=== PATIENT | female | born 1990 | race Caucasian/White ===

== ENCOUNTER → 2020-04-04 | Outpatient (CLI) | payer OTHER ==
[2020-04-04 14:03] VITALS: BP 174/101; PULSE 115; RESP 18; TEMP 98; BMI 66.4
--- NOTE | 2020-04-04 14:49 | P.HPBAR ---
Bariatric H&P - History & Physicial H&P Date: 04/04/20 History & Physicial: Visit/CC: initial visit Patient initial contact: Initial weight: Initial weight in pounds: Height: 5 ft 3 in Initial BMI: Last weight: Current weight: 170.097 kg Current weight in pounds: 375.00 Current BMI: 66.4 [place] body weight (based on NIH guidelines): 52.163 kg Excess body weight loss: The patient is a 30 year-old F who presents for Bariatric Assessment. DATE OF SERVICE: 04/04/2020 REASON FOR CONSULTATION: Initial bariatric evaluation HISTORY OF PRESENT ILLNESS: Yokasta Stephenson is a 30-year-old female who comes with lifelong morbid obesity. Her mother had the gastric bypass and father had the sleeve. Her highest weight is at present. She has tried weight watchers, thrive, atkins, liquid diet for weight loss. She has tried Adipex. With thrive, she lost 45 pounds and re-gained all of her weight. She denies back pain, but has hip pain from both hips. She has troubles with her knees for osteoarthritis. She denies troubles with her ankles or feet. She reports swelling of the lower e xtremities. She snores when she sleeps. She has daytime fatigue. Her aunt had a blood clot but not blood clots to the lungs. She had troubles with her gallbladder following her and still has her gallbladder. Her father had gallbladder problems as well. She has Crohn's disease. She denies family history of stomach or esophageal cancer. She denies dysphagia. She has acid reflux but does not take medications. She has easy bruising and bleeding. She has diarrhea. She is looking into the sleeve gastrectomy. She denies smoking. She presents to me for the first time in consultation for management of her obesity. She requires 6 months of medical supervised weight loss. At height of 5 feet 3 inches, her ideal body weight is 140 pounds. She comes in 374 pounds. Her body mass index is 66.4. She is 234 pounds overweight. PAST MEDICAL HISTORY: 1. Morbid obesity due to excess calories 2. Body mass index of 66.4, initial 3. Osteoarthritis of the knees. 4. Osteoarthritis of the hips 5. Osteoarthritis of the lower back. 6. Gastroesophageal reflux disease 7. Crohns disease PAST SURGICAL HISTORY: 1. section x 3 HOME MEDICATIONS: Home Medications Medication Instructions Recorded Confirmed No Known Home Medications 03/15/20 04/04/20 ALLERGIES: Allergies Allergy/AdvReac Type Severity Reaction Status Date / Time aspirin Allergy Rash/Hives Verified 04/04/20 13:53 ibuprofen [From Motrin] Allergy Rash/Hives Verified 04/04/20 13:53 Penicillins Allergy Rash/Hives Verified 04/04/20 13:53 SOCIAL HISTORY: Denies past tobacco use. FAMILY HISTORY: No family history of ulcerative colitis disease or Crohn's d isease. Family history of morbid obesity. No lupus in the family. No reports of stomach or esophageal cancer. Aunt had blood clot. Family history of gallbladder disease. REVIEW OF ORGAN SYSTEMS: CONSTITUTIONAL: At height of 5 feet 3 inches, her ideal body weight is 140 pounds. She comes in 374 pounds. Her body mass index is 66.4. She is 234 pounds overweight. HEENT: Denies any active troubles with vision or hearing. ENDOCRINE: Denies diabetes. No hypothyroidism. CARDIOVASCULAR: Denies past reports of palpitations or heart attacks or chest pain. RESPIRATORY: Has daytime somnolence. Denies asthma. GASTROINTESTINAL: Denies any bright red blood per rectum. Has Crohn's disease MUSCULOSKELETAL: Has lower back pain and joint pain. Has osteoarthritis of the knees. History of bilateral lower extremity edema. NEURO: No headaches. No seizure disorders. PSYCH: Denies depression. No suicidal ideation. RHEUMATOLOGIC: No lupus. No rheumatoid arthritis. HEMATOLOGIC: Has abnormal bleeding or bruising. No personal history of DVTs. SKIN: No rash. No skin cancer. PHYSICAL EXAM: VITAL SIGNS: Height 5 foot 3 inches, weight 374 pounds. BMI 66.4 Vital Signs Temp 98 F 04/04/20 13:51 Pulse 115 H 04/04/20 13:51 Resp 18 04/04/20 13:51 BP 174/101 04/04/20 13:51 Pulse Ox GENERAL: Well-developed in no acute distress. HEENT: No scleral icterus. Extraocular movements grossly intact. Hears conversational speech. No nasal drainage. NECK: Supple without lymphadenopathy. CHEST: Nonlabored respirations with equal bilateral excursions. CARDIOVASCULAR:Tachycardic. Distal 2+ pulses. ABDOMEN: Obese, soft, nontender, nondistended. MUSCULOSKELETAL: No clubbing, cyanosis. NEURO: No focal or lateralizing signs. Cranial nerves 2 through 12 grossly within normal limits. PSYCH: Appropriate affect. Alert and oriented to person, place and time. SKIN: Good skin turgor. Well perfused. ASSESSMENT: 1. Morbid obesity due to excess calories 2. Body mass index of 66.4, initial 3. Osteoarthritis of the knees. 4. Osteoarthritis of the hips 5. Osteoarthritis of the lower back. 6. Gastroesophageal reflux disease 7. Crohns disease PLAN: 1. Surgical options including a band, gastric bypass, sleeve gastrectomy were described in detail. Alternatives such as gastric balloon including duodenal switch were described. She is looking into the gastric bypass. 2. The [place] bariatric surgical collaborative data and outcomes calculator were described with surgical options. 3. Recommend a bariatric metabolic panel to evaluate for micro- including macronutrient deficiencies. 4. For history of daytime somnolence, recommend evaluation and treatment for sleep apnea. 5. Dietary surveillance and counseling was reviewed. Increased protein intake over 65 grams daily advised. 6. Will need cardiac risk assessment. 7. Recommend medical risk assessment. 8. Psych assessment per insurance guidelines. 9. Recommend upper endoscopy. 10. Recommend 12-lead EKG. Thank you for this consultation. Laboratory Last Values WBC 10.6 k/uL (3.8-10.6) 04/04/20 15:00 RBC 5.26 m/uL (3.80-5.40) 04/04/20 15:00 Hgb 15.3 gm/dL (11.4-16.0) 04/04/20 15:00 Hct 44.3 % (34.0-46.0) 04/04/20 15:00 MCV 84.2 fL (80.0-100.0) 04/04/20 15:00 MCH 29.0 pg (25.0-35.0) 04/04/20 15:00 MCHC 34.5 g/dL (31.0-37.0) 04/04/20 15:00 RDW 13.0 % (11.5-15.5) 04/04/20 15:00 Plt Count 277 k/uL (150-450) 04/04/20 15:00 MPV 8.3 04/04/20 15:00 PT 10.6 sec (9.9-11.9) 04/04/20 15:00 INR 0.98 (0.90-1.11) 04/04/20 15:00 APTT 28.7 sec (23.5-31.0) 04/04/20 15:00 Sodium 142 mmol/L (135-145) 04/04/20 15:00 Potassium 4.5 mmol/L (3.5-5.5) 04/04/20 15:00 Chloride 106 mmol/L (96-109) 04/04/20 15:00 Carbon Dioxide 26.7 mmol/L (21.6-31.8) 04/04/20 15:00 Anion Gap 9.30 mmol/L (4.00-12.00) 04/04/20 15:00 BUN 17.0 mg/dL (9.0-27.0) 04/04/20 15:00 Creatinine 1.0 mg/dL (0.6-1.5) 04/04/20 15:00 Est GFR (CKD-EPI)AfAm 87.5 (60.0-200.0) 04/04/20 15:00 Est GFR (CKD-EPI)NonAf 75.5 (60.0-200.0) 04/04/20 15:00 BUN/Creatinine Ratio 17.00 Ratio (12.00-20.00) 04/04/20 15:00 Glucose 119 mg/dL (70-110) H 04/04/20 15:[address] Glu mg/dL 117 04/04/20 15:00 Hemoglobin A1c 5.7 % (4.0-6.0) 04/04/20 15:00 Calcium 9.5 mg/dL (8.7-10.3) 04/04/20 15:00 Magnesium 2.0 mg/dL (1.5-2.4) 04/04/20 15:00 Iron 59 ug/dL (50-170) 04/04/20 15:00 TIBC 352 ug/dL (228-460) 04/04/20 15:00 % Saturation 16.76 (12.00-45.00) 04/04/20 15:00 Ferritin 41.1 ng/mL (10.0-291.0) 04/04/20 15:00 Total Bilirubin 0.4 mg/dL (0.3-1.2) 04/04/20 15:00 AST 60 U/L (13-35) H 04/04/20 15:00 ALT 114 U/L (8-44) H 04/04/20 15:00 Alkaline Phosphatase 84 U/L (41-126) 04/04/20 15:00 Total Protein 7.0 g/dL (6.2-8.2) 04/04/20 15:00 Albumin 4.60 g/dL (3.80-4.90) 04/04/20 15:00 Globulin 2.4 g/dL (1.6-3.3) 04/04/20 15:00 Albumin/Globulin Ratio 1.92 g/dL (1.60-3.17) 04/04/20 15:00 Prealbumin 30.0 mg/dL (18.0-42.0) 04/04/20 15:00 Triglycerides 196.0 mg/dL (0.0-149.0) H 04/04/20 15:00 Cholesterol 171 mg/dL (0-200) 04/04/20 15:00 LDL Cholesterol, Calc 87.8 mg/dL (0.0-131.0) 04/04/20 15:00 VLDL Cholesterol, Calc 39.20 mg/dL (5.00-40.00) 04/04/20 15:00 HDL Cholesterol 44.0 mg/dL (40.0-60.0) 04/04/20 15:00 Cholesterol/HDL Ratio 3.89 04/04/20 15:00 Vitamin A 58 ug/dL (38-106) 04/04/20 15:00 Vitamin B12 471.0 pg/mL (200.0-944.0) 04/04/20 15:00 Vitamin B1 73 ug/L (38-122) 04/04/20 15:00 Vitamin D 25-Hydroxy 10.8 ng/mL (30.0-100.0) L 04/04/20 15:00 Folate 11.7 ng/mL 04/04/20 15:00 TSH 2.300 uIU/mL (0.350-5.500) 04/04/20 15:00 PTH Intact 95.6 pg/mL (14.0-72.0) H 04/04/20 15:00 Copper 1203 ug/L (810-1990) 04/04/20 15:00 Zinc 70 ug/dL (60-130) 04/04/20 15:00 EKG EKG PERFORMED 04/04/20 15:00 Vitamin D is low PTH is high Past Medical History Past Medical History: No Reported History Additional Past Medical History / Comment(s): CROHNS/IBS; History of Any Multi-Drug Resistant Organisms: None Reported Past Surgical History: Section Additional Past Surgical History / Comment(s): c section x 3 Past Anesthesia/Blood Transfusion Reactions: No Reported Reaction Past Psychological History: No Psychological Hx Reported Smoking Status: Never smoker Past Alcohol Use History: None Reported Past Drug Use History: None Reported Surgical - Exam Vital Signs Temp Pulse Resp BP 98 F 115 H 18 174/101 04/04/20 13:51 04/04/20 13:51 04/04/20 13:51 04/04/20 13:51 Results - Labs 04/04/20 15:00 04/04/20 15:00 Bariatric Checklist Checklist: Plan: Checklist: EGD: 1. Hiatal hernia: 2. H. Pylori: HgbA1c: Vitamin D: Smoking: Primary care physician referral: Dr. Juan ([place]) Psychiatry clearance: Cardiology clearance: Sleep study: Diet journal: VTE risk score: VTE risk level: Rehab needs at discharge:
[2020-04-04 15:26] LABS: HCT 44.3 % (34.0-46.0); HGB 15.3 gm/dL (11.4-16.0); MCHC 34.5 g/dL (31.0-37.0); MCV 84.2 fL (80.0-100.0); Mean Platelet Volume 8.3; Platelet Count 277 k/uL (150-450); RBC 5.26 m/uL (3.80-5.40); WBC 10.6 k/uL (3.8-10.6)
[2020-04-04 23:00] LABS: INR 0.98 (0.90-1.11); Partial Thromboplastin Time 28.7 sec (23.5-31.0); Prothrombin Time 10.6 sec (9.9-11.9)
[2020-04-05 00:39] LABS: Hemoglobin A1C 5.7 % (4.0-6.0)
[2020-04-05 02:21] LABS: Ferritin 41.1 ng/mL (10.0-291.0)
[2020-04-05 02:42] LABS: % Iron Saturation 16.76 (12.00-45.00); African American GFR (CKD) 87.5 (60.0-200.0); Albumin 4.6 g/dL (3.80-4.90); Albumin/Globulin Ratio 1.92 (1.60-3.17); Anion Gap 9.3 mmol/L (4.00-12.00); Calcium 9.5 mg/dL (8.7-10.3); Carbon Dioxide 26.7 mmol/L (21.6-31.8); Chol/HDL Ratio 3.89; Folate, Serum 11.7 ng/mL; Globulin 2.4 g/dL (1.6-3.3); LDL Cholesterol,Calculated 87.8 mg/dL (0.0-131.0); Non-African American GFR(CKD) 75.5 (60.0-200.0); Phosphorus 3.2 mg/dL (2.4-5.1); Potassium 4.5 mmol/L (3.5-5.5); Total Bilirubin 0.4 mg/dL (0.3-1.2); VLDL Calculation 39.2 mg/dL (5.00-40.00)
[2020-04-05 11:54] LABS: Zinc, Serum 70 ug/dL (60-130)
[2020-04-06 07:02] LABS: Vitamin A 58 ug/dL (38-106)
[2020-04-06 13:18] LABS: Vit B1(Thiamine) 73 ug/L (38-122)
[2020-04-09 11:21] LABS: Selenium 100 mcg/L (63-160)
== END | disposition home or self-care (01) ==
LOC: EDBD 13:00 → EDAGE 13:00 → BARWHC3 13:24
PROVIDERS: ATTEND Surgery Plastic and Reconstructive Surgery
DX: E66.01 Morbid (severe) obesity due to excess calories (principal); M17.0 Bilateral primary osteoarthritis of knee; M16.0 Bilateral primary osteoarthritis of hip; M47.9 Spondylosis, unspecified; K21.9 Gastro-esophageal reflux disease without esophagitis; K50.90 Crohn's disease, unspecified, without complications; D50.8 Other iron deficiency anemias; E44.0 Moderate protein-calorie malnutrition; E55.9 Vitamin D deficiency, unspecified; K74.1 Hepatic sclerosis; N19 Unspecified kidney failure; Z68.44 Body mass index [BMI] 60.0-69.9, adult; Z88.5 Allergy status to narcotic agent; Z88.0 Allergy status to penicillin; Z88.8 Allergy status to other drugs, medicaments and biological substances
CPT/HCPCS: 84255; 84134; 84425; 80061; 80053; 82607; 82728; 82525; 82746; 83540; 83550; 83735; 84100; 84443; 84590; 84630; 85027; 85610; 85730; 82306; 83970; 83036; 93005; G0463; 99203

== ENCOUNTER 2020-06-18 07:35 | Day surgery (SDC) | payer OTHER ==
[2020-06-15 10:33] VITALS: BMI 61.8
[~2020-06-18 07:35] MED LIST: LIDOCAINE 1% (10MG/ML) FOR IV START INTRADERMA PRN
--- NOTE | 2020-06-18 07:40 | P.GSHP ---
History of Present Illness H&P Date: 06/18/20 CHIEF COMPLAINT: GERD HISTORY OF PRESENT ILLNESS: The patient is a 30-year-old female who presents reports gastroesophageal reflux disease. Upper endoscopy was offered for further evaluation and management. PAST MEDICAL HISTORY: Please see list. PAST SURGICAL HISTORY: Please see list. MEDICATIONS: Please see list. ALLERGIES: Please see list. SOCIAL HISTORY: No illicit drug use FAMILY HISTORY: No reports of Crohn disease or ulcerative colitis. REVIEW OF ORGAN SYSTEMS: CONSTITUTIONAL: No reports of fevers or chills. GI: Denies any blood in stools or constipation. PHYSICAL EXAM: VITAL SIGNS: Stable GENERAL: Well-developed and pleasant in no acute distress. HEENT: No scleral icterus. Extraocular movements grossly intact. Moist buccal mucosa. NECK: Supple without lymphadenopathy. CHEST: Unlabored respirations. Equal bilateral excursions. CARDIOVASCULAR: Regular rate and rhythm. Distal 2+ pulses. ABDOMEN: Soft, nondistended. MUSCULOSKELETAL: No clubbing, cyanosis, or edema. ASSESSMENT: 1. Gastroesophageal reflux disease PLAN: 1. Recommend proceeding with an upper endoscopy Past Medical History Past Medical History: GERD/Reflux, Hypertension Additional Past Medical History / Comment(s): CROHNS/IBS; History of Any Multi-Drug Resistant Organisms: None Reported Past Surgical History: Section Additional Past Surgical History / Comment(s): c section x 3 Past Anesthesia/Blood Transfusion Reactions: Motion Sickness Smoking Status: Never smoker - Past Family History Mother Family Medical History: No Reported History Medications and Allergies Home Medications Medication Instructions Recorded Confirmed Type Ergocalciferol [Vitamin D2 (1250 50,000 unit PO WEEKLY 04/09/20 06/15/20 History Mcg = 41483 Iu)] ALPRAZolam [Xanax] 0.5 mg PO DAILY PRN 06/15/20 06/15/20 History Cetirizine HCl [Zyrtec] 10 mg PO DAILY 06/15/20 06/15/20 History Dicyclomine HCl 10 mg PO TID PRN 06/15/20 06/15/20 History Fluticasone Nasal [place] [Flonase 2 spr EA NOSTRIL DAILY 06/15/20 06/15/20 History Nasal [place]] calcium polycarbophiL [Fibercon] 625 mg PO DAILY 06/15/20 06/15/20 History lisinopriL 20 mg PO QAM 06/15/20 06/15/20 History Allergies Allergy/AdvReac Type Severity Reaction Status Date / Time aspirin Allergy Rash/Hives Verified 06/15/20 10:24 ibuprofen [From Motrin] Allergy Rash/Hives Verified 06/15/20 10:24 Penicillins Allergy Rash/Hives Verified 06/15/20 10:24
[2020-06-18 07:58] VITALS: TEMP 97.7
[2020-06-18] MEDS: LACTATED RINGERS 1,000 ML IV SCH ×2 (08:00→08:16)
[2020-06-18] MEDS ORDERED: PROPOFOL 10 MG/ML 20 ML VIAL IV ONE (08:17)
[2020-06-18] MEDS ORDERED: LIDOCAINE 1% INJ 10MG/ML (20 ML MDV) ONE (08:17)
--- NOTE | 2020-06-18 08:32 | P.PCN ---
Date of Procedure: 06/18/20 Description of Procedure: PREOPERATIVE DIAGNOSIS: Gastroesophageal reflux disease. Morbid obesity. POSTOPERATIVE DIAGNOSIS: Morbid obesity. Gastritis. Gastroesophageal reflux disease. OPERATION: Esophagogastroduodenoscopy with biopsies along antrum. SURGEON: Blanka Silva MD ANESTHESIA: MAC. INDICATIONS: The patient is a 30-year-old female who presents with a history of reflux disease. Benefits and risks of the procedure were described. Informed consent was obtained. DESCRIPTION: The patient was brought into the endoscopy suite and laid in the left lateral decubitus position. An Olympus gastroscope was passed along the posterior oropharynx down to the distal esophagus where the squamocolumnar junction was encountered at 38 cm from the incisors. The stomach was entered and no bile reflux was found. Additional findings are listed below. Biopsies with cold forceps were obtained of the antrum. The first through third portion of the duodenum was examined and unremarkable. Retroflexion of the scope confirmed Hill grade 2 lower esophageal valve. The squamocolumnar junction demonstrated LA grade A erosive esophagitis. The stomach was desufflated. The patient tolerated the procedure well. FINDINGS: Squamocolumnar junction 38 cm from the incisors. Diaphragmatic hiatus at 38 cm. Hill grade 2 lower esophageal valve. LA grade A erosive esophagitis. No active duodenitis. Chronic gastritis RECOMMENDATIONS: Upper endoscopy as needed. Plan - Discharge Summary New Discharge Prescriptions: Continue Ergocalciferol [Vitamin D2 (1250 Mcg = 75063 Iu)] 50,000 unit PO WEEKLY Fluticasone Nasal [place] [Flonase Nasal [place]] 2 spr EA NOSTRIL DAILY ALPRAZolam [Xanax] 0.5 mg PO DAILY PRN PRN Reason: Anxiety Dicyclomine HCl 10 mg PO TID PRN PRN Reason: Pain lisinopriL 20 mg PO QAM Cetirizine HCl [Zyrtec] 10 mg PO DAILY calcium polycarbophiL [Fibercon] 625 mg PO DAILY Discharge Medication List Ergocalciferol [Vitamin D2 (1250 Mcg = 75372 Iu)] 50,000 unit PO WEEKLY 04/09/20 [History] ALPRAZolam [Xanax] 0.5 mg PO DAILY PRN 06/15/20 [History] Cetirizine HCl [Zyrtec] 10 mg PO DAILY 06/15/20 [History] Dicyclomine HCl 10 mg PO TID PRN 06/15/20 [History] Fluticasone Nasal [place] [Flonase Nasal [place]] 2 spr EA NOSTRIL DAILY 06/15/20 [History] calcium polycarbophiL [Fibercon] 625 mg PO DAILY 06/15/20 [History] lisinopriL 20 mg PO QAM 06/15/20 [History] [facility] [place] [facility] [place] [facility] Patient Instructions/Handouts: Gastritis (DC), Diet for Stomach Ulcers and Gastritis (ED) Discharge Disposition: HOME SELF-CARE
[2020-06-18 09:03] VITALS: BP 118/76; PULSE 82; RESP 16
== END 2020-06-18 09:12 | disposition home or self-care (01) ==
LOC: ORWHC2ENDO 07:35
PROVIDERS: ATTEND Surgery Plastic and Reconstructive Surgery
DX: K29.50 Unspecified chronic gastritis without bleeding (principal); K21.9 Gastro-esophageal reflux disease without esophagitis; I10 Essential (primary) hypertension; E66.01 Morbid (severe) obesity due to excess calories; Z79.899 Other long term (current) drug therapy; Z88.6 Allergy status to analgesic agent; Z88.0 Allergy status to penicillin
CPT/HCPCS: 81025; 88305; 43239; J2001; J2704

== ENCOUNTER → 2020-06-27 | Outpatient (CLI) | payer OTHER ==
[2020-06-27 14:38] VITALS: BP 138/88; PULSE 102; RESP 22; TEMP 98.1; BMI 62.3
--- NOTE | 2020-06-27 15:37 | P.PN ---
Subjective Progress Note Date: 06/27/20 DATE OF SERVICE: 06/27/2020 CHIEF COMPLAINT: Morbid obesity HISTORY OF PRESENT ILLNESS: Yokasta Stephenson is a 30-year-old female who comes with lifelong morbid obesity. As a result of her morbid obesity, she has developed hypertensive heart disease, osteoarthritis of the knees, hips, lower back. She is looking into the sleeve gastrectomy but open to options on all gastrectomy procedures. She has completed her upper endoscopy. She had an abnormal EKG and has completed a stress test. She is enrolled in medical supervised weight loss and has completed 4+ months. At height of 5 feet 3 inches, her ideal body weight is 140 pounds. She comes in 374 pounds. Her body mass index is 66.4. She comes in 351 pounds from 374 pounds, 3 months ago. She has lost 23 pounds in 3 months. She is 211 pounds o verweight. PAST MEDICAL HISTORY: 1. Morbid obesity due to excess calories 2. Body mass index of 66.4, initial 3. Osteoarthritis of the knees. 4. Osteoarthritis of the hips 5. Osteoarthritis of the lower back. 6. Gastroesophageal reflux disease 7. Crohns disease 8. Hypertensive heart disease 9. Generalized anxiety disorder PAST SURGICAL HISTORY: 1. section x 3 HOME MEDICATIONS: Home Medications Medication Instructions Recorded Confirmed Ergocalciferol [Vitamin D2 (1250 50,000 unit PO WEEKLY 04/09/20 06/27/20 Mcg = 99197 Iu)] ALPRAZolam [Xanax] 0.5 mg PO DAILY PRN 06/15/20 06/27/20 Cetirizine HCl [Zyrtec] 10 mg PO DAILY 06/15/20 06/27/20 Dicyclomine HCl 10 mg PO TID PRN 06/15/20 06/27/20 Fluticasone Nasal [place] [Flonase 2 spr EA NOSTRIL DAILY 06/15/20 06/27/20 Nasal [place]] calcium polycarbophiL [Fibercon] 625 mg PO DAILY 06/15/20 06/27/20 lisinopriL 20 mg PO QAM 06/15/20 06/27/20 Inulin/Chromium Picolinate [Fiber 2 each PO DAILY 06/27/20 06/27/20 Gummies Chew] Previous Rx's Medication Instructions Recorded Ergocalciferol [Vitamin D2 (1250 1,250 mcg PO WEEKLY #20 cap 06/27/20 Mcg = 22031 Iu)] ALLERGIES: Allergies Allergy/AdvReac Type Severity Reaction Status Date / Time aspirin Allergy Rash/Hives Verified 06/27/20 14:38 ibuprofen [From Motrin] Allergy Rash/Hives Verified 06/27/20 14:38 Penicillins Allergy Rash/Hives Verified 06/27/20 14:38 SOCIAL HISTORY: Denies past tobacco use. FAMILY HISTORY: No family history of ulcerative colitis disease or Crohn's disease. Family history of morbid obesity. No lupus in the family. No reports of stomach or esophageal cancer. Aunt had blood clot. Family history of gallbladder disease. REVIEW OF ORGAN SYSTEMS: CONSTITUTIONAL: At height of 5 feet 3 inches, her ideal body weight is 140 pounds. She comes in 374 pounds. Her body mass index is 66.4. She is 234 pounds overweight. HEENT: Denies any active troubles with vision or hearing. ENDOCRINE: Denies diabetes. No hypothyroidism. CARDIOVASCULAR: Denies past reports of palpitations or heart attacks or chest pain. Has hypertensive heart disease. RESPIRATORY: Has daytime somnolence. Denies asthma. GASTROINTESTINAL: Denies any bright red blood per rectum. Has Crohn's disease MUSCULOSKELETAL: Has lower back pain and joint pain. Has osteoarthritis of the knees. History of bilateral lower extremity edema. NEURO: No headaches. No seizure disorders. PSYCH: Denies depression. No suicidal ideation. RHEUMATOLOGIC: No lupus. No rheumatoid arthritis. HEMATOLOGIC: Has abnormal bleeding or bruising. No personal history of DVTs. SKIN: No rash. No skin cancer. PHYSICAL EXAM: VITAL SIGNS: Height 5 foot 3 inches, weight 351 pounds. BMI 62.4 Vital Signs Temp 98.1 F 06/27/20 14:27 Pulse 102 H 06/27/20 14:27 Resp 22 06/27/20 14:27 BP 138/88 06/27/20 14:27 Pulse Ox GENERAL: Well-developed in no acute distress. HEENT: No scleral icterus. Extraocular movements grossly intact. Hears conversational speech. No nasal drainage. NECK: Supple without lymphadenopathy. CHEST: Nonlabored respirations with equal bilateral excursions. CARDIOVASCULAR:Tachycardic. Distal 2+ pulses. ABDOMEN: Obese, soft, nontender, nondistended. MUSCULOSKELETAL: No clubbing, cyanosis. NEURO: No focal or lateralizing signs. Cranial nerves 2 through 12 grossly within normal limits. PSYCH: Appropriate affect. Alert and oriented to person, place and time. SKIN: Good skin turgor. Well perfused. LABS: AST and ALT is elevated. Triglycerides is elevated. Vitamin D is low. PTH is elevated EKG: Left atrial enlargement. Septal infarct. Abnormal EKG. EGD FINDINGS: Squamocolumnar junction 38 cm from the incisors. Diaphragmatic hiatus at 38 cm. Hill grade 2 lower esophageal valve. LA grade A erosive esophagitis. No active duodenitis. Chronic gastritis ASSESSMENT: 1. Morbid obesity due to excess calories 2. Body mass index of 66.4, initial 3. Osteoarthritis of the knees. 4. Osteoarthritis of the hips 5. Osteoarthritis of the lower back. 6. Gastroesophageal reflux disease 7. Crohns disease 8. Elevated liver enzymes 9. Hypertriglyceridemia 10. Vitamin D deficiency 11. Secondary hyperparathyroidism 12. Hypertensive heart disease 13. Generalized anxiety disorder PLAN: 1. Recommend Vitamin D supplement 50,000 units weekly 2. Recommend re-check labs following correction with supplements. 3. Continue medical supervised weight loss. 4. Recommend ultrasound of the gallbladder for elevated liver enzymes. 5. Follow up August following 6 months medical supervised weight loss. Objective - Vital Signs Vital signs: Vital Signs Temp 98.1 F 06/27/20 14:27 Pulse 102 H 06/27/20 14:27 Resp 22 06/27/20 14:27 BP 138/88 06/27/20 14:27 Pulse Ox Intake & Output 06/26/20 06/27/20 06/27/20 18:59 06:59 18:59 Weight 159.665 kg - Labs CBC & Chem 7: 06/27/20 16:08 06/27/20 16:08
[2020-06-27 17:32] LABS: HCT 44.7 % (34.0-46.0); HGB 15.2 gm/dL (11.4-16.0); MCH 28.8 pg (25.0-35.0); MCV 84.8 fL (80.0-100.0); Mean Platelet Volume 8.3; Platelet Count 266 k/uL (150-450); RBC 5.27 m/uL (3.80-5.40); WBC 10.7 k/uL (3.8-10.6)
[2020-06-27 22:55] LABS: INR 0.98 (0.90-1.11); Partial Thromboplastin Time 28.1 sec (23.5-31.0); Prothrombin Time 10.7 sec (9.9-11.9)
[2020-06-28 18:52] LABS: % Iron Saturation 18.7 (12.00-45.00); Albumin 4.7 g/dL (3.80-4.90); Albumin/Globulin Ratio 1.88 (1.60-3.17); Anion Gap 15.8 mmol/L (4.00-12.00); BUN/Creat Ratio 14.55 Ratio (12.00-20.00); Carbon Dioxide 20.2 mmol/L (21.6-31.8); Chol/HDL Ratio 4.13; Globulin 2.5 g/dL (1.6-3.3); Magnesium 1.9 mg/dL (1.5-2.4); Non-African American GFR(CKD) 67.3 (60.0-200.0); Phosphorus 4.6 mg/dL (2.4-5.1); Potassium 4.6 mmol/L (3.5-5.5); Total Bilirubin 0.4 mg/dL (0.3-1.2); Total Protein 7.2 g/dL (6.2-8.2)
[2020-06-28 19:03] LABS: Ferritin 37.5 ng/mL (10.0-291.0)
[2020-06-28 19:12] LABS: Folate, Serum 11.6 ng/mL
[2020-06-29 13:34] LABS: Zinc, Serum 65 ug/dL (60-130)
[2020-07-01 17:28] LABS: Selenium 108 mcg/L (63-160)
[2020-07-02 08:18] LABS: Vitamin A 53 ug/dL (38-106)
[2020-07-02 10:32] LABS: Vit B1(Thiamine) 71 ug/L (38-122)
== END ==
LOC: BARWHC3 14:10
PROVIDERS: ATTEND Surgery Plastic and Reconstructive Surgery
DX: E66.01 Morbid (severe) obesity due to excess calories (principal); M17.0 Bilateral primary osteoarthritis of knee; M16.0 Bilateral primary osteoarthritis of hip; M47.9 Spondylosis, unspecified; K21.9 Gastro-esophageal reflux disease without esophagitis; R94.5 Abnormal results of liver function studies; K50.90 Crohn's disease, unspecified, without complications; E78.1 Pure hyperglyceridemia; E55.9 Vitamin D deficiency, unspecified; N25.81 Secondary hyperparathyroidism of renal origin; I11.9 Hypertensive heart disease without heart failure; F41.1 Generalized anxiety disorder; Z68.44 Body mass index [BMI] 60.0-69.9, adult; Z88.0 Allergy status to penicillin; Z88.6 Allergy status to analgesic agent; Z79.899 Other long term (current) drug therapy
CPT/HCPCS: 84255; 84134; 84425; 80061; 80053; 82607; 82728; 82525; 82746; 83540; 83550; 83735; 84100; 84443; 84590; 84630; 85027; 85610; 85730; 82306; 83970; 83036; G0463; 99211

== ENCOUNTER → 2020-07-26 | Outpatient (CLI) | payer OTHER ==
--- NOTE | 2020-07-26 08:29 | US ---
EXAMINATION TYPE: US gallbladder DATE OF EXAM: 07/26/2020 COMPARISON: NONE CLINICAL HISTORY: R94.5 Abnormal liver function. EXAM MEASUREMENTS: Liver Length: 17.4 cm Gallbladder Wall: 0.2 cm CBD: 0.5 cm Right Kidney: 12.6 x 6.1 x 4.7 cm Pancreas: Partially Obscured by bowel gas Liver: Increased attenuation, decreased visualization of vessels suggestive of fatty infiltration Gallbladder: Wall echo shadow sign. The gallbladder appears full of gallstones. Evidence for sonographic Machado's sign: No CBD: wnl Right Kidney: No hydronephrosis or masses seen IMPRESSION: 1. The pancreas is limited in visualization due to overlying bowel gas. 2. Diffuse fatty infiltration of the liver. 3. Cholelithiasis. The gallbladder appears full of gallstones with a wall echo shadow sign.
== END | disposition home or self-care (01) ==
LOC: RADUSWWP 07:51
PROVIDERS: ATTEND Surgery Plastic and Reconstructive Surgery
DX: K76.0 Fatty (change of) liver, not elsewhere classified (principal); K80.20 Calculus of gallbladder without cholecystitis without obstruction
CPT/HCPCS: 76705

== ENCOUNTER → 2020-08-15 | Outpatient (CLI) | payer OTHER ==
--- NOTE | 2020-08-16 07:52 | XR ---
EXAMINATION TYPE: XR chest 2V DATE OF EXAM: 08/15/2020 COMPARISON: NONE HISTORY: Cough. TECHNIQUE: Frontal and lateral views of the chest are obtained. FINDINGS: There is no focal air space opacity, pleural effusion, or pneumothorax seen. The cardiac silhouette size is within normal limits. The osseous structures are intact. IMPRESSION: No suspicious acute pulmonary process.
== END | disposition home or self-care (01) ==
LOC: RADXRMAIN 16:23
PROVIDERS: ATTEND Surgery Plastic and Reconstructive Surgery
DX: R05 Cough (principal)
CPT/HCPCS: 71046

== ENCOUNTER → 2020-08-15 | Outpatient (CLI) | payer OTHER ==
[2020-08-15 16:58] VITALS: BP 115/84; PULSE 133; RESP 16; TEMP 98.2; BMI 59.8
--- NOTE | 2020-08-15 18:20 | P.PN ---
Subjective Progress Note Date: 08/15/20 DATE OF SERVICE: 08/15/2020 CHIEF COMPLAINT: Morbid obesity HISTORY OF PRESENT ILLNESS: Yokasta Stephenson is a 30-year-old female who comes with lifelong morbid obesity. As a result of her morbid obesity, she has developed hypertensive heart disease, osteoarthritis of the knees, hips, lower back. She is looking into the sleeve gastrectomy. She is enrolled in medical supervised weight loss. She is in her 6th month. She comes in with new right upper quadrant pain exacerbated by fatty foods and has gotten worse since her diet. At height of 5 feet 3 inches, her ideal body weight is 140 pounds. Her highest 374 pounds and body mass index is 66.4. She comes in 337 pounds form 351 pounds, 2 months ago. She has lost 14 pounds in 2 months. She is 197 pounds overweight. PAST MEDICAL HISTORY: 1. Morbid obesity due to excess calories 2. Body mass index of 66.4, initial 3. Osteoarthritis of the knees. 4. Osteoarthritis of the hips 5. Osteoarthritis of the lower back. 6. Gastroesophageal reflux disease 7. Crohns disease 8. Hypertensive heart disease 9. Generalized anxiety disorder PAST SURGICAL HISTORY: 1. section x 3 2. Upper endoscopy HOME MEDICATIONS: Home Medications Medication Instructions Recorded Confirmed Ergocalciferol [Vitamin D2 (1250 50,000 unit PO WEEKLY 04/09/20 06/27/20 Mcg = 53954 Iu)] ALPRAZolam [Xanax] 0.5 mg PO DAILY PRN 06/15/20 06/27/20 Cetirizine HCl [Zyrtec] 10 mg PO DAILY 06/15/20 06/27/20 Dicyclomine HCl 10 mg PO TID PRN 06/15/20 06/27/20 Fluticasone Nasal [place] [Flonase 2 spr EA NOSTRIL DAILY 06/15/20 06/27/20 Nasal [place]] calcium polycarbophiL [Fibercon] 625 mg PO DAILY 06/15/20 06/27/20 lisinopriL 20 mg PO QAM 06/15/20 06/27/20 Inulin/Chromium Picolinate [Fiber 2 each PO DAILY 06/27/20 06/27/20 Gummies Chew] Previous Rx's Medication Instructions Recorded Ergocalciferol [Vitamin D2 (1250 1,250 mcg PO WEEKLY #20 cap 06/27/20 Mcg = 29191 Iu)] ALLERGIES: Allergies Allergy/AdvReac Type Severity Reaction Status Date / Time aspirin Allergy Rash/Hives Verified 06/27/20 14:38 ibuprofen [From Motrin] Allergy Rash/Hives Verified 06/27/20 14:38 Penicillins Allergy Rash/Hives Verified 06/27/20 14:38 SOCIAL HISTORY: Denies past tobacco use. FAMILY HISTORY: No family history of ulcerative colitis disease or Crohn's disease. Family history of morbid obesity. No lupus in the family. No reports of stomach or esophageal cancer. Aunt had blood clot. Family history of gallbladder disease. REVIEW OF ORGAN SYSTEMS: CONSTITUTIONAL: At height of 5 feet 3 inches, her ideal body weight is 140 pounds. She comes in 374 pounds. Her body mass index is 66.4. She is 234 pounds overweight. HEENT: Denies any active troubles with vision or hearing. ENDOCRINE: Denies diabetes. No hypothyroidism. CARDIOVASCULAR: Denies past reports of palpitations or heart attacks or chest pain. Has hypertensive heart disease. RESPIRATORY: Has daytime somnolence. Denies asthma. GASTROINTESTINAL: Denies any bright red blood per rectum. Has Crohn's disease MUSCULOSKELETAL: Has lower back pain and joint pain. Has osteoarthritis of the knees. History of bilateral lower extremity edema. NEURO: No headaches. No seizure disorders. PSYCH: Denies depression. No suicidal ideation. RHEUMATOLOGIC: No lupus. No rheumatoid arthritis. HEMATOLOGIC: Has abnormal bleeding or bruising. No personal history of DVTs. SKIN: No rash. No skin cancer. PHYSICAL EXAM: VITAL SIGNS: Height 5 foot 3 inches, weight 337 pounds. BMI 59.9 Vital Signs Temp 98.2 F 08/15/20 16:54 Pulse 133 H 08/15/20 16:54 Resp 16 08/15/20 16:54 BP 115/84 08/15/20 16:54 Pulse Ox GENERAL: Well-developed in no acute distress. HEENT: No scleral icterus. Extraocular movements grossly intact. Hears conversational speech. No nasal drainage. NECK: Supple without lymphadenopathy. CHEST: Nonlabored respirations with equal bilateral excursions. CARDIOVASCULAR:Tachycardic. Distal 2+ pulses. ABDOMEN: Obese, soft, nontender, nondistended. MUSCULOSKELETAL: No clubbing, cyanosis. NEURO: No focal or lateralizing signs. Cranial nerves 2 through 12 grossly within normal limits. PSYCH: Appropriate affect. Alert and oriented to person, place and time. SKIN: Good skin turgor. Well perfused. LABS: AST and ALT is elevated. STUDIES: US gallbladder independently reviewed with fatty liver disease and gallstones. This is my independent interpretation. Chest xray independently reviewed without infiltrate. This is my independent interpretation. ASSESSMENT: 1. Morbid obesity due to excess calories 2. Body mass index of 66.4, initial to 59.9 3. Osteoarthritis of the knees. 4. Osteoarthritis of the hips 5. Osteoarthritis of the lower back. 6. Gastroesophageal reflux disease 7. Crohns disease 8. Elevated liver enzymes 9. Hypertriglyceridemia 10. Vitamin D deficiency 11. Secondary hyperparathyroidism 12. Hypertensive heart disease 13. Generalized anxiety disorder 14. Tachycardia 15. Fatty liver disease 16. Gallstones 17. Right upper quadrant abdominal pain 18. Vitamin D deficiency PLAN: 1. She has symptomatic gallstones with right upper quadrant abdominal pain. Recommend cholecystectomy. She is elevated risk with BMI over 50.0 2. Antibiotic prophylaxis 3. DVT prophylaxis 4. Continue medical supervised weight loss with low fat diet. 5. Recommend calcium 1200 mg daily and Vitamin D 58030 units weekly for deficiencies. Objective - Vital Signs Vital signs: Vital Signs Temp 98.2 F 08/15/20 16:54 Pulse 133 H 08/15/20 16:54 Resp 16 08/15/20 16:54 BP 115/84 08/15/20 16:54 Pulse Ox Intake & Output 08/14/20 08/15/20 08/15/20 18:59 06:59 18:59 Weight 153.314 kg
== END ==
LOC: BARWHC3 16:51
PROVIDERS: ATTEND Surgery Plastic and Reconstructive Surgery
DX: E66.01 Morbid (severe) obesity due to excess calories (principal); E55.9 Vitamin D deficiency, unspecified; E78.1 Pure hyperglyceridemia; F41.1 Generalized anxiety disorder; I11.9 Hypertensive heart disease without heart failure; K21.9 Gastro-esophageal reflux disease without esophagitis; K50.90 Crohn's disease, unspecified, without complications; K76.0 Fatty (change of) liver, not elsewhere classified; K80.20 Calculus of gallbladder without cholecystitis without obstruction; M16.0 Bilateral primary osteoarthritis of hip; M17.0 Bilateral primary osteoarthritis of knee; N25.81 Secondary hyperparathyroidism of renal origin; Z68.43 Body mass index [BMI] 50.0-59.9, adult; M47.9 Spondylosis, unspecified; R94.5 Abnormal results of liver function studies; R00.0 Tachycardia, unspecified; Z88.0 Allergy status to penicillin; Z88.6 Allergy status to analgesic agent; Z91.048 Other nonmedicinal substance allergy status; Z88.8 Allergy status to other drugs, medicaments and biological substances
CPT/HCPCS: 99211

== ENCOUNTER → 2020-08-20 | Outpatient (CLI) | payer OTHER ==
[2020-08-20 09:34] VITALS: BMI 61.8
== END ==
LOC: BARWHC3 08:30
PROVIDERS: ATTEND Surgery Plastic and Reconstructive Surgery
DX: E66.01 Morbid (severe) obesity due to excess calories (principal); Z71.3 Dietary counseling and surveillance; Z68.44 Body mass index [BMI] 60.0-69.9, adult; Z88.0 Allergy status to penicillin; Z88.6 Allergy status to analgesic agent
CPT/HCPCS: 97804

== ENCOUNTER → 2020-08-20 | Outpatient (CLI) | payer OTHER ==
[2020-08-20 12:53] LABS: Basophils % (A) 0 %; Eosinophils # (A) 0.1 k/uL (0-0.7); Eosinophils % (A) 2 %; HCT 42.2 % (34.0-46.0); HGB 13.6 gm/dL (11.4-16.0); Lymphocytes # (A) 2.1 k/uL (1.0-4.8); Lymphocytes % (A) 26 %; MCH 27.6 pg (25.0-35.0); MCHC 32.3 g/dL (31.0-37.0); MCV 85.3 fL (80.0-100.0); Mean Platelet Volume 8.6; Monocytes # (A) 0.5 k/uL (0-1.0); Monocytes % (A) 6 %; Neutrophils # (A) 5.1 k/uL (1.3-7.7); Neutrophils % (A) 64 %; Platelet Count 223 k/uL (150-450); RBC 4.95 m/uL (3.80-5.40); RDW 13.5 % (11.5-15.5); WBC 7.9 k/uL (3.8-10.6)
[2020-08-20 13:21] LABS: ALT 32 U/L (4-34); AST 27 U/L (14-36); African American GFR (CKD) >90 (>60 ml/min/1.73 sqM); Alkaline Phosphatase 68 U/L (38-126); Anion Gap 6 mmol/L; Blood Urea Nitrogen 21 mg/dL (7-17); Carbon Dioxide 29 mmol/L (22-30); Chloride 102 mmol/L (98-107); Glucose 99 mg/dL (74-99); Non-African American GFR(CKD) 87 (>60 ml/min/1.73 sqM); Potassium 4.7 mmol/L (3.5-5.1); Sodium 137 mmol/L (137-145); Total Bilirubin 0.5 mg/dL (0.2-1.3); Total Protein 6.9 g/dL (6.3-8.2)
== END | disposition home or self-care (01) ==
LOC: LABPAT 11:24
PROVIDERS: ATTEND Surgery Plastic and Reconstructive Surgery
DX: Z01.812 Encounter for preprocedural laboratory examination (principal)
CPT/HCPCS: 36415; 80053; 85025

== ENCOUNTER 2020-08-27 09:58 | Day surgery (SDC) | payer OTHER ==
[2020-08-21 13:45] VITALS: BMI 63.1
--- NOTE | 2020-08-27 07:18 | P.GSHP ---
History of Present Illness H&P Date: 08/27/20 CHIEF COMPLAINT: Cholecystitis HISTORY OF PRESENT ILLNESS: The patient is a 30-year-old female who presents with history of epigastric including right upper quadrant abdominal pain. She underwent diagnostic studies for her gallbladder. Separately her clinical picture was consistent with cholecystitis. Now she presents for surgical intervention. PAST MEDICAL HISTORY: Please see list PAST SURGICAL HISTORY: Please see list MEDICATIONS: Please see list ALLERGIES: Please see list SOCIAL HISTORY: Please see list FAMILY HISTORY: Please see list REVIEW OF ORGAN SYSTEMS: CONSTITUTIONAL: No reports of fevers or chills. HEENT: Denies any troubles with the vision or hearing. ENDOCRINE: No reports of hypothyroidism. No diabetes. RESPIRATORY: No recent pneumonias. CARDIOVASCULAR: Denies chest pain or palpitations GI: No blood in stools or constipation. MUSCULOSKELETAL: Has occasional joint pain including back pain. NEURO: No seizure disorders or headaches. No recent stroke. PSYCH: No depression or suicidal ideation. GENITOURINARY: No active blood in urine. No urinary hesitancy. HEMATOLOGIC: No personal or family history of DVTs or pulmonary emboli. SKIN: No skin cancer. PHYSICAL EXAM: VITAL SIGNS: Afebrile vital signs stable GENERAL: Well-developed pleasant in no acute distress. HEENT: No scleral icterus. Extraocular movements grossly intact. Moist buccal mucosa. NECK: Supple without lymphadenopathy. CHEST: Unlabored respirations. Equal bilateral excursions. CARDIOVASCULAR: Regular rate regular rhythm rhythm. Distal 2+ pulses. ABDOMEN: Soft, nondistended. Tender along the epigastrium and right upper quadrant. MUSCULOSKELETAL: No clubbing, cyanosis, or edema. NEURO: Cranial nerves II to XII within normal limits. No focal or lateralizing signs. PSYCH: Alert and oriented to person, place and time. SKIN: Well-perfused good skin turgor. ASSESSMENT: 1. Epigastric and right upper quadrant abdominal pain 2. Chronic cholecystitis 3. Symptomatic gallstones. PLAN: 1. Will need a robotic cholecystectomy possible open. Benefits and risks were described. 2. Heparin for DVT prophylaxis 5000 units. 3. Antibiotic prophylaxis. Past Medical History Past Medical History: GERD/Reflux, Hypertension Additional Past Medical History / Comment(s): CROHNS/IBS; History of Any Multi-Drug Resistant Organisms: None Reported Past Surgical History: Section Additional Past Surgical History / Comment(s): c section x 3 Past Anesthesia/Blood Transfusion Reactions: Motion Sickness Smoking Status: Never smoker - Past Family History Mother Family Medical History: No Reported History Medications and Allergies Home Medications Medication Instructions Recorded Confirmed Type Ergocalciferol [Vitamin D2 (1250 50,000 unit PO WEEKLY 04/09/20 08/21/20 History Mcg = 81509 Iu)] ALPRAZolam [Xanax] 0.5 mg PO DAILY PRN 06/15/20 08/21/20 History Cetirizine HCl [Zyrtec] 10 mg PO DAILY 06/15/20 08/21/20 History Dicyclomine HCl 10 mg PO TID PRN 06/15/20 08/21/20 History Fluticasone Nasal [place] [Flonase 2 spr EA NOSTRIL DAILY PRN 06/15/20 08/21/20 History Nasal [place]] lisinopriL 20 mg PO QAM 06/15/20 08/21/20 History Calcium Citrate/Vitamin D3 1 each PO BID #60 tablet 08/15/20 08/21/20 Rx [Calcium Cit 315-Vit D3 6.25 Mcg (250 Iu)] Cannabidiol (Cbd) [Epidiolex] 1 dose PO DAILY PRN 08/21/20 08/21/20 History Multivitamins, Thera [Multivitamin 1 tab PO DAILY 08/21/20 08/21/20 History (formulary)] Omeprazole [PriLOSEC] 20 mg PO AC-BRKFST 08/21/20 08/21/20 History calcium polycarbophiL [Fibercon] 625 mg PO DAILY 08/21/20 08/21/20 History Allergies Allergy/AdvReac Type Severity Reaction Status Date / Time aspirin Allergy Rash/Hives Verified 08/21/20 13:36 ibuprofen [From Motrin] Allergy Rash/Hives Verified 08/21/20 13:36 Penicillins Allergy Rash/Hives Verified 08/21/20 13:36
[~2020-08-27 09:58] MED LIST changes: +ACETAMINOPHEN TAB 500 MG TAB PO PRN; +DEXAMETHASONE SOD PHOSPHATE 4 MG/ML 1 ML VIAL IV ONE; +GABAPENTIN 300 MG CAP PO PRN; +INDOCYANINE GREEN 25 MG VIAL IV PRN; +LACTATED RINGERS 1,000 ML IV SCH; -LIDOCAINE 1% (10MG/ML) FOR IV START INTRADERMA PRN; +ONDANSETRON 4 MG/2 ML VIAL IVP ONE; +SCOPOLAMINE 1.5MG/72HR PATCH TRANSDERM PRN; +ceFAZolin 3 GM in SODIUM CHLORIDE 0.9% 100 ML IVPB PRN
[2020-08-27] MEDS ORDERED: LIDOCAINE 1% INJ 10MG/ML (20 ML MDV) ONE (11:26)
[2020-08-27] MEDS ORDERED: PHENYLEPHRINE-0.9% NACL SYG 1,000 MCG/10 ML SYRINGE ONE (11:26)
[2020-08-27] MEDS ORDERED: MIDAZOLAM 2 MG/2 ML VIAL ONE (11:26)
[2020-08-27] MEDS ORDERED: NEOSTIGMINE 1 MG/ML 10 ML VIAL ONE (11:26)
[2020-08-27] MEDS ORDERED: GLYCOPYRROLATE 0.2 MG/ML 2 ML VIAL ONE (11:26)
[2020-08-27] MEDS ORDERED: SUCCINYLCHOLINE CHLORIDE VIAL 200 MG/10 ML VIAL IV ONE (11:26)
[2020-08-27] MEDS ORDERED: PROPOFOL 10 MG/ML 20 ML VIAL IV ONE (11:26)
[2020-08-27] MEDS ORDERED: INDOCYANINE GREEN 25 MG VIAL IV ONE (11:26)
[2020-08-27] MEDS ORDERED: fentaNYL (PF) 50 MCG/ML 2 ML AMP ONE (11:26)
[2020-08-27] MEDS ORDERED: HYDROmorphone (PF) 1 MG/ML ONE (11:26)
[2020-08-27] MEDS ORDERED: ROCURONIUM 10 MG/ML (5 ML VIAL) IV ONE (11:26)
[2020-08-27] MEDS ORDERED: HEPARIN SODIUM,PORCINE 5,000 UNIT/ML 1 ML VIAL SQ ONE (11:28)
[2020-08-27] MEDS ORDERED: HEPARIN SODIUM,PORCINE/PF 5,000 UNIT/0.5 ML SYRINGE SQ ONE (11:29)
[2020-08-27] MEDS ORDERED: LIDOCAINE 1%-EPI 1:100,000 20 ML VIAL SQ ONE (12:03)
[2020-08-27] MEDS ORDERED: LACTATED RINGERS 1,000 ML IV ONE (12:51)
[2020-08-27 13:29] VITALS: TEMP 96.8
[2020-08-27] MEDS: HYDROmorphone 0.5 MG/0.5 ML SYRINGE IVP PRN ×2 (13:48→13:59)
[2020-08-27] MEDS ORDERED: ONDANSETRON 4 MG/2 ML VIAL IVP ONE (13:50)
[2020-08-27] MEDS ORDERED: SIMETHICONE 80 MG CHEWABLE PO SCH (14:07)
--- NOTE | 2020-08-27 14:09 | P.OP ---
Date of Procedure: 08/27/20 Description of Procedure: SURGEON: DERREK GOMEZ MD PREOPERATIVE DIAGNOSES: 1. Symptomatic gallstone 2. Right upper quadrant abdominal pain 3. Morbid obesity due to excess calories, BMI 63.4 4. Hypertension 5. Anxiety POSTOPERATIVE DIAGNOSES: 1. Symptomatic gallstone 2. Right upper quadrant abdominal pain 3. Morbid obesity due to excess calories, BMI 63.4 4. Hypertension 5. Anxiety 6. Irritable bowel syndrome 7. Chronic cholecystitis 8. Peritoneal adhesions, right upper quadrant 9. Moderate lower abdominal pelvic adhesions 10. Hepatomegaly with fatty liver disease OPERATION: 1. Robotic-assisted da Alfredito Xi laparoscopic extensive lysis of adhesions, over 30 minutes 2. Robotic-assisted da Alfredito Xi laparoscopic cholecystectomy, multiport with FIREFLY ANESTHESIA: General and local ESTIMATED BLOOD LOSS: 5 mL. SPECIMENS REMOVED: Gallbladder. COMPLICATIONS: None. OPERATIVE FINDINGS: 1. Moderate scarring over entire gallbladder with peritoneal adhesions, pericholecystic with features of chronic cholecystitis 2. Gallstones over 3 identified at least 5 mm in size 3. Moderate adhesions in pelvis 4. Moderate to severe hepatomegaly with fatty liver disease 5. Body habitus adding complexity to the case, BMI over 60 INDICATIONS: The patient is a 30-year-old female who presents with symptomatic gallstones. Robotic assisted laparoscopic approach was described. Benefits and risks of the procedure including but not limited to bleeding, infection, injury to the biliary tree was described. Informed consent was obtained. DESCRIPTION OF PROCEDURE: Patient was brought to the operating room, placed in supine position. After general induction, the abdomen had been prepped and draped in standard sterile fashion. The robotic da Alfredito XI system was primed. After a timeout protocol was performed, the patient had been prepped and draped in standard sterile fashion. The patient was injected with indocyanine green. A 5 mm 0 degrees laparoscopic trocar entry was performed along the left upper quadrant. The abdomen insufflated to 15 mmHg pressure which was tolerated well. Diagnostic laparoscopy demonstrated no injury to bowel viscera or mesentery. The liver surface was unremarkable. Next, two 8 mm robotic ports were placed along the right upper abdomen. The camera 8-mm port was maintained along the epigastrium. Another 8 mm port was placed along the left upper abdominal wall after exchanging the 5 mm port. Please note that the ports were placed at least 10 to 15 cm away from the target anatomy of the gallbladder. The robot was docked along the left lateral abdomen. The patient was repositioned in reverse Trendelenburg position. Using a grasper for arm 3, a grasper for arm 4, including hook cautery for arm 1, the robotic system was docked and primed as described. Instruments were interchanged by the bilingual office assistant including hook cautery, Bovie cautery and clip appliers. I had sat at the console. The gallbladder was scarred with moderate to severe peritoneal adhesions. Additional complexity of the case is due to her body habitus, BMI over 60. Extensive lysis of adhesions were performed over 30 minutes to free the gallbladder from the surrounding tissues. Next attention was brought to the infundibulum and cystic structures. The infundibulum and cystic duct were dissected free from surrounding tissues. The cystic duct was isolated. FIREFLY was used to identify the cystic artery and cystic structures. A critical view of safety was obtained. Large PLASTIC clips were used throughout the entire case. Using a clip plastic welding machine operator, 2 clips were placed at the junction of the infundibulum and cystic duct. The cystic duct was divided between clips. Next, the cystic artery was similarly clipped and cauterized. Electro-Bovie cautery was used to remove the gallbladder from the hepatic fossa. Hemostasis was checked and found to be adequate. The robot was undocked. I re-scrubbed into the case. Using a 10 mm Endo Catch bag via the left upper quadrant incision, the specimen was removed from the abdominal cavity. All pneumoperitoneum instruments were evacuated from the abdominal cavity. The incisions were reapproximated using 4-0 Monocryl in an interrupted subcuticular fashion. Fascial defects were less than 8 mm in size. Please note along the trocar sites, local anesthetic was placed as a field block prior to insertion of all instruments. Liquid glue was applied to the skin. At the end of the procedure needle, sponge, and instrument count had been verified correct by the certified surgical assistant. The patient was transferred to postanesthesia care unit in stable condition. Intraoperative films were shared with the patient's family.
[2020-08-27 14:28] VITALS: RESP 20
[2020-08-27 15:33] VITALS: BP 123/74; PULSE 84
== END 2020-08-27 15:43 | disposition home or self-care (01) ==
LOC: OR 09:58
PROVIDERS: ATTEND Surgery Plastic and Reconstructive Surgery
DX: K80.10 Calculus of gallbladder with chronic cholecystitis without obstruction (principal); N73.6 Female pelvic peritoneal adhesions (postinfective); K21.9 Gastro-esophageal reflux disease without esophagitis; I10 Essential (primary) hypertension; K50.90 Crohn's disease, unspecified, without complications; K58.9 Irritable bowel syndrome, unspecified; E66.01 Morbid (severe) obesity due to excess calories; Z68.44 Body mass index [BMI] 60.0-69.9, adult; F41.9 Anxiety disorder, unspecified; K76.0 Fatty (change of) liver, not elsewhere classified; R16.0 Hepatomegaly, not elsewhere classified; Z98.891 History of uterine scar from previous surgery; Z79.899 Other long term (current) drug therapy; Z88.6 Allergy status to analgesic agent; Z88.0 Allergy status to penicillin
CPT/HCPCS: 47564; 49329; S2900; 81025; 88304

== ENCOUNTER → 2020-08-29 | Outpatient (CLI) | payer OTHER ==
[2020-08-29 14:51] VITALS: BP 155/80; PULSE 85; TEMP 97; BMI 60.7
--- NOTE | 2020-08-29 18:12 | P.PN ---
Subjective Progress Note Date: 08/29/20 DATE OF SERVICE: 08/29/2020 CHIEF COMPLAINT: Morbid obesity HISTORY OF PRESENT ILLNESS: Yokasta Stephenson is a 30-year-old female who comes with lifelong morbid obesity. She is status post cholecystectomy, 08/27/20. She is POD 2. She reports soreness due to constipation. No reports of nausea or vomiting. At height of 5 feet 3 inches, her ideal body weight is 140 pounds. Her highest 374 pounds and body mass index is 66.4. She comes in 341 pounds from 348 pounds, 2 weeks ago. She has lost 7 pounds in 2 weeks. She is 201 pounds overweight. PHYSICAL EXAM: VITAL SIGNS: Height 5 foot 3 inches, weight 341 pounds. BMI 60.8 Vital Signs Temp 97 F L 08/29/20 14:24 Pulse 85 08/29/20 14:24 Resp BP 155/80 08/29/20 14:24 Pulse Ox GENERAL: Well-developed in no acute distress. HEENT: No scleral icterus. Extraocular movements grossly intact. Hears conversational speech. No nasal drainage. NECK: Supple without lymphadenopathy. CHEST: Nonlabored respirations with equal bilateral excursions. CARDIOVASCULAR: Regular rate and rhythm. Distal 2+ pulses. ABDOMEN: Obese. Incisions intact. MUSCULOSKELETAL: No clubbing, cyanosis. NEURO: No focal or lateralizing signs. Cranial nerves 2 through 12 grossly within normal limits. PSYCH: Appropriate affect. Alert and oriented to person, place and time. SKIN: Good skin turgor. Well perfused. Final Pathologic Diagnosis GALLBLADDER, CHOLECYSTECTOMY: Mild chronic cholecystitis with cholelithiasis. ASSESSMENT: 1. Morbid obesity due to excess calories 2. Body mass index of 66.4, initial to 59.9 3. Osteoarthritis of the knees. 4. Osteoarthritis of the hips 5. Osteoarthritis of the lower back. 6. Gastroesophageal reflux disease 7. Crohns disease 8. Elevated liver enzymes 9. Hypertriglyceridemia 10. Vitamin D deficiency 11. Secondary hyperparathyroidism 12. Hypertensive heart disease 13. Generalized anxiety disorder 14. Tachycardia 15. Fatty liver disease 16. Gallstones 17. Right upper quadrant abdominal pain 18. Vitamin D deficiency 19. Status post cholecystectomy PLAN: 1. Follow-up in 2 weeks. 2. Recommend milk of magnesia or Dulcolax. 3. Recommend low fat diet.
== END ==
LOC: BARWHC3 12:23
PROVIDERS: ATTEND Surgery Plastic and Reconstructive Surgery
DX: E66.01 Morbid (severe) obesity due to excess calories (principal); E55.9 Vitamin D deficiency, unspecified; E78.1 Pure hyperglyceridemia; F41.1 Generalized anxiety disorder; I11.9 Hypertensive heart disease without heart failure; K21.9 Gastro-esophageal reflux disease without esophagitis; K50.90 Crohn's disease, unspecified, without complications; K59.00 Constipation, unspecified; K76.0 Fatty (change of) liver, not elsewhere classified; K80.10 Calculus of gallbladder with chronic cholecystitis without obstruction; M16.0 Bilateral primary osteoarthritis of hip; M17.0 Bilateral primary osteoarthritis of knee; N25.81 Secondary hyperparathyroidism of renal origin; M47.9 Spondylosis, unspecified; R94.5 Abnormal results of liver function studies; R00.0 Tachycardia, unspecified; Z90.49 Acquired absence of other specified parts of digestive tract; Z68.43 Body mass index [BMI] 50.0-59.9, adult; Z88.0 Allergy status to penicillin; Z88.6 Allergy status to analgesic agent; Z91.048 Other nonmedicinal substance allergy status; Z88.8 Allergy status to other drugs, medicaments and biological substances
CPT/HCPCS: 99211

== ENCOUNTER → 2020-09-12 | Outpatient (CLI) | payer OTHER ==
[2020-09-12 14:15] VITALS: BP 156/80; PULSE 89; RESP 18; TEMP 98.1; BMI 59.5
--- NOTE | 2020-09-12 14:27 | P.PN ---
Subjective Progress Note Date: 09/12/20 DATE OF SERVICE: 09/12/2020 CHIEF COMPLAINT: Morbid obesity HISTORY OF PRESENT ILLNESS: Yokasta Stephenson is a 30-year-old female who comes with lifelong morbid obesity. She is looking into the sleeve gastrectomy. She has severe hepatomegaly. She continues to lose weight. She is eating low carb tortilla shells. She is adjusting her diet for fatty liver disease as her liver is too large as found on recent cholecystectomy 2 weeks ago. At height of 5 feet 3 inches, her ideal body weight is 140 pounds. Her highest 374 pounds and body mass index is 66.4. She comes in 335 pounds from 341 pounds, 2 weeks ago. She has lost 7 pounds in 2 weeks. She is 195 pounds overweight. PHYSICAL EXAM: VITAL SIGNS: Height 5 foot 3 inches, weight 335 pounds. BMI 59.5 Vital Signs Temp 98.1 F 09/12/20 14:03 Pulse 89 09/12/20 14:03 Resp 18 09/12/20 14:03 BP 156/80 09/12/20 14:03 Pulse Ox GENERAL: Well-developed in no acute distress. HEENT: No scleral icterus. Extraocular movements grossly intact. Hears conversational speech. No nasal drainage. NECK: Supple without lymphadenopathy. CHEST: Nonlabored respirations with equal bilateral excursions. CARDIOVASCULAR: Regular rate and rhythm. Distal 2+ pulses. ABDOMEN: Obese. Incisions granulating. MUSCULOSKELETAL: No clubbing, cyanosis. NEURO: No focal or lateralizing signs. Cranial nerves 2 through 12 grossly within normal limits. PSYCH: Appropriate affect. Alert and oriented to person, place and time. SKIN: Good skin turgor. Well perfused. ASSESSMENT: 1. Morbid obesity due to excess calories 2. Body mass index of 66.4, initial to 59.5 3. Osteoarthritis of the knees. 4. Osteoarthritis of the hips 5. Osteoarthritis of the lower back. 6. Gastroesophageal reflux disease 7. Crohns disease 8. Elevated liver enzymes 9. Hypertriglyceridemia 10. Vitamin D deficiency 11. Secondary hyperparathyroidism 12. Hypertensive heart disease 13. Generalized anxiety disorder 14. Tachycardia 15. Fatty liver disease 16. Gallstones 17. Right upper quadrant abdominal pain 18. Vitamin D deficiency 19. Status post cholecystectomy 20. Dietary surveillance and counseling. PLAN: 1. She continues to lose weight on low carbohydrate diet. 2. Recommend 2 to 4 weeks of recovery prior to sleeve gastretomy. 3. May start weight lifting for September 25. Objective - Vital Signs Vital signs: Vital Signs Temp 98.1 F 09/12/20 14:03 Pulse 89 09/12/20 14:03 Resp 18 09/12/20 14:03 BP 156/80 09/12/20 14:03 Pulse Ox Intake & Output 09/11/20 09/12/20 09/12/20 18:59 06:59 18:59 Weight 152.407 kg
== END ==
LOC: BARWHC3 13:18
PROVIDERS: ATTEND Surgery Plastic and Reconstructive Surgery
DX: E66.01 Morbid (severe) obesity due to excess calories (principal); M17.0 Bilateral primary osteoarthritis of knee; M16.0 Bilateral primary osteoarthritis of hip; M47.816 Spondylosis without myelopathy or radiculopathy, lumbar region; K21.9 Gastro-esophageal reflux disease without esophagitis; K50.90 Crohn's disease, unspecified, without complications; R74.01 Elevation of levels of liver transaminase levels; E78.1 Pure hyperglyceridemia; E55.9 Vitamin D deficiency, unspecified; N25.81 Secondary hyperparathyroidism of renal origin; I11.9 Hypertensive heart disease without heart failure; F41.1 Generalized anxiety disorder; K76.0 Fatty (change of) liver, not elsewhere classified; K80.80 Other cholelithiasis without obstruction; Z71.3 Dietary counseling and surveillance; Z90.49 Acquired absence of other specified parts of digestive tract; Z91.048 Other nonmedicinal substance allergy status; Z88.6 Allergy status to analgesic agent; Z88.8 Allergy status to other drugs, medicaments and biological substances; Z88.0 Allergy status to penicillin; Z68.43 Body mass index [BMI] 50.0-59.9, adult
CPT/HCPCS: 99211

== ENCOUNTER 2020-10-15 08:00 | Inpatient (IN) | payer OTHER ==
--- NOTE | 2020-10-15 02:56 | P.GSHP ---
History of Present Illness H&P Date: 10/15/20 CHIEF COMPLAINT: Morbid obesity HISTORY OF PRESENT ILLNESS: Yokasta Stephenson is a 30-year-old female who comes with lifelong morbid obesity. As a result of her morbid obesity, she has developed hypertensive heart disease, osteoarthritis of the knees, hips, lower back. She is looking into the sleeve gastrectomy and has completed bariatric risk assessment including cardiac process assessment. At height of 5 feet 3 inches, her ideal body weight is 140 pounds. She comes in 374 pounds. Her body mass index is 66.4. She comes in 351 pounds from 374 pounds, 3 months ago. She has lost 23 pounds in 3 months. She is 211 pounds overweight. PAST MEDICAL HISTORY: 1. Morbid obesity due to excess calories 2. Body mass index of 66.4, initial 3. Osteoarthritis of the knees. 4. Osteoarthritis of the hips 5. Osteoarthritis of the lower back. 6. Gastroesophageal reflux disease 7. Crohns disease 8. Hypertensive heart disease 9. Generalized anxiety disorder PAST SURGICAL HISTORY: 1. section x 3 HOME MEDICATIONS: Home Medications Medication Instructions Recorded Confirmed Ergocalciferol [Vitamin D2 (1250 50,000 unit PO WEEKLY 04/09/20 06/27/20 Mcg = 76899 Iu)] ALPRAZolam [Xanax] 0.5 mg PO DAILY PRN 06/15/20 06/27/20 Cetirizine HCl [Zyrtec] 10 mg PO DAILY 06/15/20 06/27/20 Dicyclomine HCl 10 mg PO TID PRN 06/15/20 06/27/20 Fluticasone Nasal [place] [Flonase 2 spr EA NOSTRIL DAILY 06/15/20 06/27/20 Nasal [place]] calcium polycarbophiL [Fibercon] 625 mg PO DAILY 06/15/20 06/27/20 lisinopriL 20 mg PO QAM 06/15/20 06/27/20 Inulin/Chromium Picolinate [Fiber 2 each PO DAILY 06/27/20 06/27/20 Gummies Chew] Previous Rx's Medication Instructions Recorded Ergocalciferol [Vitamin D2 (1250 1,250 mcg PO WEEKLY #20 cap 06/27/20 Mcg = 28194 Iu)] ALLERGIES: Allergies Allergy/AdvReac Type Severity Reaction Status Date / Time aspirin Allergy Rash/Hives Verified 06/27/20 14:38 ibuprofen [From Motrin] Allergy Rash/Hives Verified 06/27/20 14:38 Penicillins Allergy Rash/Hives Verified 06/27/20 14:38 SOCIAL HISTORY: Denies past tobacco use. FAMILY HISTORY: No family history of ulcerative colitis disease or Crohn's disease. Family history of morbid obesity. No lupus in the family. No reports of stomach or esophageal cancer. Aunt had blood clot. Family history of gallbladder disease. REVIEW OF ORGAN SYSTEMS: CONSTITUTIONAL: At height of 5 feet 3 inches, her ideal body weight is 140 pounds. She comes in 374 pounds. Her body mass index is 66.4. She is 234 pounds overweight. HEENT: Denies any active troubles with vision or hearing. ENDOCRINE: Denies diabetes. No hypothyroidism. CARDIOVASCULAR: Denies past reports of palpitations or heart attacks or chest pain. Has hypertensive heart disease. RESPIRATORY: Has daytime somnolence. Denies asthma. GASTROINTESTINAL: Denies any bright red blood per rectum. Has Crohn's disease MUSCULOSKELETAL: Has lower back pain and joint pain. Has osteoarthritis of the knees. History of bilateral lower extremity edema. NEURO: No headaches. No seizure disorders. PSYCH: Denies depression. No suicidal ideation. RHEUMATOLOGIC: No lupus. No rheumatoid arthritis. HEMATOLOGIC: Has abnormal bleeding or bruising. No personal history of DVTs. SKIN: No rash. No skin cancer. PHYSICAL EXAM: VITAL SIGNS: Height 5 foot 3 inches, weight 351 pounds. BMI 62.4 GENERAL: Well-developed in no acute distress. HEENT: No scleral icterus. Extraocular movements grossly intact. Hears conversational speech. No nasal drainage. NECK: Supple without lymphadenopathy. CHEST: Nonlabored respirations with equal bilateral excursions. CARDIOVASCULAR:Tachycardic. Distal 2+ pulses. ABDOMEN: Obese, soft, nontender, nondistended. MUSCULOSKELETAL: No clubbing, cyanosis. NEURO: No focal or lateralizing signs. Cranial nerves 2 through 12 grossly within normal limits. PSYCH: Appropriate affect. Alert and oriented to person, place and time. SKIN: Good skin turgor. Well perfused. ASSESSMENT: 1. Morbid obesity due to excess calories 2. Body mass index of 66.4, initial 3. Osteoarthritis of the knees. 4. Osteoarthritis of the hips 5. Osteoarthritis of the lower back. 6. Gastroesophageal reflux disease 7. Crohns disease 8. Elevated liver enzymes 9. Hypertriglyceridemia 10. Vitamin D deficiency 11. Secondary hyperparathyroidism 12. Hypertensive heart disease 13. Generalized anxiety disorder PLAN: 1. Bariatric options between a sleeve, band and a Kavin-en-Y gastric bypass were reviewed in detail. The patient elected for a sleeve gastrectomy. Robotic assisted approach described. 2. The [place] [facility] Data was also reviewed with benefits and risks as described. 3. An 8 page second-generation bariatric consent form was reviewed in detail including potential of bleeding, infection, leaks, adequate weight loss, nutritional deficiencies which the patient demonstrated understanding of the risks. 4. A 2 week high-protein low caloric 800 kcal diet described to address hepatomegaly. 5. Preoperative labs including complete metabolic panel and CBC with type and screen recommended. 6. DVT prophylaxis per [place] [facility] collaborative. 7. Antibiotic prophylaxis. 8. Inpatient hospitalization anticipated for more than 2 nights. 9. All questions and concerns were addressed with the patient. 10. Overall, patient has expressed understanding of bariatric care including postoperative diet and commitment of lifestyle. Patient should benefit from surgical intervention for correction of her morbid obesity. Past Medical History Past Medical History: GERD/Reflux, Hypertension Additional Past Medical History / Comment(s): CROHNS/IBS, migraines, History of Any Multi-Drug Resistant Organisms: None Reported Past Surgical History: Section, Cholecystectomy Additional Past Surgical History / Comment(s): c section x 3, lap cholecystectomy 08-27-20 Past Anesthesia/Blood Transfusion Reactions: No Reported Reaction Smoking Status: Never smoker - Past Family History Mother Family Medical History: No Reported History Medications and Allergies Home Medications Medication Instructions Recorded Confirmed Type Ergocalciferol [Vitamin D2 (1250 50,000 unit PO WE 04/09/20 10/10/20 History Mcg = 88474 Iu)] ALPRAZolam [Xanax] 0.5 mg PO DAILY PRN 06/15/20 10/10/20 History Cetirizine HCl [Zyrtec] 10 mg PO DAILY 06/15/20 10/10/20 History Dicyclomine HCl 10 mg PO TID PRN 06/15/20 10/10/20 History Fluticasone Nasal [place] [Flonase 2 spr EA NOSTRIL DAILY PRN 06/15/20 10/10/20 History Nasal [place]] lisinopriL 30 mg PO QAM 06/15/20 10/10/20 History Calcium Citrate/Vitamin D3 1 each PO BID #60 tablet 08/15/20 10/10/20 Rx [Calcium Cit 315-Vit D3 6.25 Mcg (250 Iu)] Cannabidiol (Cbd) [Epidiolex] 1 dose PO DAILY PRN 08/21/20 10/10/20 History Multivitamins, Thera [Multivitamin 1 tab PO DAILY 08/21/20 10/10/20 History (formulary)] Omeprazole [PriLOSEC] 20 mg PO AC-BRKFST 08/21/20 10/10/20 History calcium polycarbophiL [Fibercon] 625 mg PO DAILY 08/21/20 10/10/20 History Acetaminophen Tab [Tylenol Tab] 1,000 mg PO Q6HR PRN #30 tablet 08/27/20 10/10/20 Rx Simethicone [Gas-X] 125 mg PO AC-TID PRN #20 capsule 08/27/20 10/10/20 Rx Cyclobenzaprine [Flexeril] 10 mg PO DAILY PRN 10/10/20 10/10/20 History Allergies Allergy/AdvReac Type Severity Reaction Status Date / Time aspirin Allergy Rash/Hives Verified 10/10/20 11:53 hydrochlorothiazide Allergy Nausea & Verified 10/10/20 11:53 Vomiting ibuprofen [From Motrin] Allergy Rash/Hives Verified 10/10/20 11:53 Penicillins Allergy Rash/Hives Verified 10/10/20 11:53
[~2020-10-15 08:00] MED LIST changes: -ACETAMINOPHEN TAB 500 MG TAB PO PRN; +CHLORHEXIDINE GLUCONATE 15 ML CUP MUCOUS MEM PRN; -DEXAMETHASONE SOD PHOSPHATE 4 MG/ML 1 ML VIAL IV ONE; +ENOXAPARIN 40 MG/0.4 ML SYRINGE SQ PRN; -GABAPENTIN 300 MG CAP PO PRN; -INDOCYANINE GREEN 25 MG VIAL IV PRN; -LACTATED RINGERS 1,000 ML IV SCH; +LIDOCAINE 1% (10MG/ML) FOR IV START INTRADERMA PRN; +MIDAZOLAM 2 MG/2 ML VIAL IV PRN; -ONDANSETRON 4 MG/2 ML VIAL IVP ONE; +PANTOPRAZOLE 40 MG/10 ML VIAL IVP PRN; -SCOPOLAMINE 1.5MG/72HR PATCH TRANSDERM PRN
[2020-10-15] MEDS: LACTATED RINGERS 1,000 ML IV SCH ×2 (10:27→11:11)
[2020-10-15] MEDS: DEXAMETHASONE SOD PHOSPHATE 4 MG/ML 1 ML VIAL IV ONE ×2 (10:29→16:29)
[2020-10-15] MEDS: ONDANSETRON 4 MG/2 ML VIAL IVP ONE ×2 (10:30→16:29)
[2020-10-15] MEDS: SCOPOLAMINE 1.5MG/72HR PATCH TRANSDERM SCH ×2 (10:30→16:29)
[2020-10-15] MEDS ORDERED: fentaNYL (PF) 50 MCG/ML 2 ML AMP ONE (11:08)
[2020-10-15] MEDS ORDERED: SUCCINYLCHOLINE CHLORIDE VIAL 200 MG/10 ML VIAL IV ONE (11:08)
[2020-10-15] MEDS ORDERED: NEOSTIGMINE 1 MG/ML 10 ML VIAL ONE (11:08)
[2020-10-15] MEDS ORDERED: HYDROmorphone (PF) 1 MG/ML ONE (11:08)
[2020-10-15] MEDS ORDERED: ROCURONIUM 10 MG/ML (5 ML VIAL) IV ONE (11:08)
[2020-10-15] MEDS ORDERED: PHENYLEPHRINE-0.9% NACL SYG 1,000 MCG/10 ML SYRINGE ONE (11:08)
[2020-10-15] MEDS ORDERED: PROPOFOL 10 MG/ML 20 ML VIAL IV ONE (11:08)
[2020-10-15] MEDS ORDERED: MIDAZOLAM 2 MG/2 ML VIAL ONE (11:08)
[2020-10-15] MEDS ORDERED: GLYCOPYRROLATE 0.2 MG/ML 2 ML VIAL ONE (11:08)
[2020-10-15] MEDS ORDERED: LIDOCAINE 1% INJ 10MG/ML (20 ML MDV) ONE (11:08)
[2020-10-15] MEDS ORDERED: LIDOCAINE 1%-EPI 1:100,000 20 ML VIAL SQ ONE (11:44)
[2020-10-15] MEDS ORDERED: LACTATED RINGERS 1,000 ML IV ONE (12:14)
[2020-10-15] MEDS ORDERED: diphenhydrAMINE 50 MG/ML 1 ML VIAL IVP PRN (13:24)
[2020-10-15] MEDS ORDERED: NALOXONE 0.4 MG/ML 1 ML VIAL IV PRN (13:24)
--- NOTE | 2020-10-15 13:24 | P.OP ---
Date of Procedure: 10/15/20 Description of Procedure: SURGEON: DERREK GOMEZ MD PREOPERATIVE DIAGNOSES: 1. Morbid obesity due to excess calories 2. Body mass index of 66.4, initial 3. Osteoarthritis of the knees. 4. Osteoarthritis of the hips 5. Osteoarthritis of the lower back. 6. Gastroesophageal reflux disease 7. Crohns disease 8. Elevated liver enzymes 9. Hypertriglyceridemia 10. Vitamin D deficiency 11. Secondary hyperparathyroidism 12. Hypertensive heart disease 13. Generalized anxiety disorder POSTOPERATIVE DIAGNOSES: 1. Morbid obesity due to excess calories 2. Body mass index of 66.4, initial 3. Osteoarthritis of the knees. 4. Osteoarthritis of the hips 5. Osteoarthritis of the lower back. 6. Gastroesophageal reflux disease 7. Crohns disease 8. Elevated liver enzymes 9. Hypertriglyceridemia 10. Vitamin D deficiency 11. Secondary hyperparathyroidism 12. Hypertensive heart disease 13. Generalized anxiety disorder OPERATION: 1. Robotic assisted daVinci Xi laparoscopic sleeve gastrectomy with 40-Stateless bougie, multiport. 2. Intraoperative esophagogastroduodenoscopy. ANESTHESIA: Gen. local anesthetic ESTIMATED BLOOD LOSS: 5 mL SPECIMENS REMOVED: Sleeve gastrectomy COMPLICATIONS: None. FINDINGS: 1. Negative intraoperative esophagogastrojejunoscopy leak test. 2. Improve hepatomegaly and no large hiatus hernia. 3. Total of 6 staplers used including 2 - 60 mm blue robot john and 4 - 60 mm green robot loads used to create the gastric sleeve. 4. Sleeve gastrectomy, 25 x 5 cm INDICATIONS: Yokasta Stephenson is a 30-year-old female who comes with lifelong morbid obesity. As a result of her morbid obesity, she has developed hypertensive heart disease, osteoarthritis of the knees, hips, lower back. She is looking into the sleeve gastrectomy and has completed bariatric risk assessment including cardiac process assessment. At height of 5 feet 3 inches, her ideal body weight is 140 pounds. She comes in 313 pounds from 374 pounds. Her body mass index was 66.4 now 57.5. She She has lost 60 pounds in 4 months. She is 173 pounds overweight. All surgical options for morbid obesity had been described using the [place] bariat[facility] surgery collaborative comorbidity resolution including complication risk score. A second-generation bariatric consent form was described in detail including the possibility of protein malnutrition, leaks, gastric stricture, venous thrombosis, gastroesophageal reflux disease, need for further surgery for which she demonstrated understanding. Benefits and risks of the procedure were described at length. Informed consent was obtained. DESCRIPTION: The patient was brought into the operating room theater. Pr eoperatively she had received Lovenox subcutaneously for DVT prophylaxis. Additionally she had Peridex oral solution as an oral decontaminant. After general induction, the abdomen was prepped and draped in standard sterile fashion. An Ioban draping was placed along the abdomen. A robotic da Alfredito Xi system was prepped and primed. At 15 cm from the xiphoid, proposed port sites were marked with indelible marker along the anterior axillary line bilaterally, mid axillary line bilaterally with each ports were marked 10 to 15 cm from each other. Previous incisions from prior cholecystectomy were used. The robotic stapler port was marked for the right midclavicular line. A 5 mm 0 degrees laparoscopic trocar entry was performed along the left upper quadrant. The abdomen was insufflated to 15 mmHg pressure was tolerated well. Diagnostic laparoscopy demonstrated no injury to bowel, viscera, or mesentery. No evidence of large hiatus hernia was identified. The liver surface had decreased fatty liver disease consistent with her 2 week diet. A 8 mm port was placed along the left upper abdominal wall after exchanging the 5 mm port. A separate 8 mm port was placed along the left lateral abdominal wall. Please note that the ports were placed at least 20 cm away from the target anatomy. Care was taken to check each robotic arms were safely away from collision with the bed or the patient. At the epigastrium, a medium sized Moses liver retractor was placed under direct visualization with the [employer] Lead placed under the right shoulder of the patient. Next, 12-mm robot stapler port was placed along the right upper quadrant. The camera 8-mm port was maintained along the epigastrium. The patient was repositioned in reverse Trendelenburg position at 21-degrees after lowering the bed. The robot was docked along the left side of the patient. Using a grasper for arm 4, a vessel sealer for arm 3, including grasper for arm 1, the robotic system was docked and primed as described. Instruments were interchanged by the assistant finance manager for stapler loads. The camera was placed at 30- degrees down. I had sat at the console. The pylorus was identified and 6 cm proximally along the greater curvature of the stomach, the short gastrics were mobilized upwards to the angle of His using a vessel sealer. Hemostasis was excellent during this portion of the procedure. Next, the upper pole of the stomach was adherent to the left vanessa, which was gently dissected free using atraumatic grasper. I went to the head of the bed and placed 40-Stateless blunt bougie into the stomach. The bougie was readjusted by the nurse wwe wrestler. Robotic stapler green load 60 mm 4 followed by blue 60 mm x 2 loads were used to create the sleeve. Initial firing was across the antrum of the stomach towards the angle of His. The staple line was linear without corkscrewing. The space from the angularis incisura of the sleeve was approximately 4 cm. I then went to the head of the bed to perform the intraoperative esophagogastroduodenoscopy leak test. The bougie was withdrawn. The upper pole of the stomach was bathed using normal saline solution. The scope was withdrawn with careful inspection along the staple line for which no leaks were found along the entire length. Additionally,the sleeve was completely hemostatic without any encroachment along the angularis incisura. Its topology was a soft "J". No stricture was encountered upon placement of the scope. The GI tract was desufflated. The patient tolerated this portion of the procedure well. The scope was completely withdrawn. The robot was undocked. I then rescrubbed into case, whereby the irrigation fluid was aspirated from the abdominal cavity. Tisseel fibrin sealant was placed along the entire staple length. Once dried the Moses liver retractor was removed. Attention was now brought to removal of the specimen. The distal end of the sleeve gastrectomy specimen was brought out through the 12 mm port at the left upper quadrant. The specimen was gently removed en total. No contamination had occurred during this process. All instruments and pneumoperitoneum including irrigation fluid was removed from the abdominal cavity. The 12 mm port site was closed using 0-Vicryl and Isidoro Davey and irrigated with diluted hydrogen peroxide. The final incisions were closed using subcuticular interrupted suture of 4-0 Monocryl. Exofin was applied to the skin once the skin had been cleansed. OptiFoam dressing was placed along the stomach extraction site. The sleeve specimen was measured and checked also for leaks which none were found. At the end of the procedure, needle, sponge, and instrument count was verified correct by the director medical surgical. The patient was taken to the postanesthesia care unit in stable condition. She had tolerated the procedure well. Intraoperative films and findings were reviewed with the patient's family who was pleased with the level of care.
[2020-10-15] MEDS ORDERED: CYCLOBENZAPRINE 10 MG TAB PO PRN (13:27)
[2020-10-15] MEDS ORDERED: ALPRAZolam 0.5 MG TAB PO PRN (13:27)
[2020-10-15] MEDS: HYDROmorphone 0.5 MG/0.5 ML SYRINGE IVP PRN ×4 (13:37→15:13)
[2020-10-15] MEDS ORDERED: ONDANSETRON 4 MG/2 ML VIAL ONE (14:04)
[2020-10-15] MEDS ORDERED: ONDANSETRON 4 MG/2 ML VIAL IVP ONE (14:06)
[2020-10-15] MEDS ORDERED: SIMETHICONE 80 MG CHEWABLE PO PRN (15:30)
[2020-10-15] MEDS ORDERED: SIMETHICONE 40 MG/0.6 ML DROPS 2,000 MG/30 ML BOTTLE PO ONE (15:45)
[2020-10-15] MEDS: ALBUTEROL NEBULIZED 2.5 MG/3 ML INHALATION SCH ×2 (16:31→21:32)
[2020-10-15] MEDS: HYOSCYAMINE ORAL DROPS 1.875 MG/15 ML BOTTLE PO SCH ×2 (17:29→23:45)
[2020-10-15] MEDS: ACETAMINOPHEN IV (For NPO) 1,000 MG in EMPTY BAG 1 BAG IVPB SCH ×2 (17:29→23:37)
[2020-10-15] MEDS: SIMETHICONE 40 MG/0.6 ML DROPS 2,000 MG/30 ML BOTTLE PO SCH ×2 (17:29→23:46)
[2020-10-15] MEDS: DEXAMETHASONE SOD PHOSPHATE 4 MG/ML 1 ML VIAL IV SCH ×2 (17:30→23:44)
[2020-10-15] MEDS: ONDANSETRON 4 MG/2 ML VIAL IVP SCH ×2 (17:30→23:45)
[2020-10-15] MEDS: 0.9% NACL WITH KCL 20 MEQ/L 1,000 ML IV SCH ×2 (17:30→23:33)
[2020-10-15] MEDS: HYDROmorphone 1 MG/ML 1 ML SYRINGE IVP PRN ×2 (17:42→20:57)
[2020-10-15] MEDS ORDERED: ceFAZolin 3 GM in SODIUM CHLORIDE 0.9% 100 ML IVPB SCH (20:00)
[2020-10-15] MEDS ORDERED: DEXAMETHASONE SOD PHOSPHATE 10 MG/ML 1 ML VIAL IV ONE (21:00)
[2020-10-16] MEDS: HYDROmorphone 1 MG/ML 1 ML SYRINGE IVP PRN ×5 (04:09→23:29)
[2020-10-16] MEDS: 0.9% NACL WITH KCL 20 MEQ/L 1,000 ML IV SCH (05:56)
[2020-10-16] MEDS: ACETAMINOPHEN IV (For NPO) 1,000 MG in EMPTY BAG 1 BAG IVPB SCH ×2 (05:57→11:59)
[2020-10-16] MEDS: ONDANSETRON 4 MG/2 ML VIAL IVP SCH ×4 (06:02→23:29)
[2020-10-16] MEDS: HYOSCYAMINE ORAL DROPS 1.875 MG/15 ML BOTTLE PO SCH ×4 (06:02→23:30)
[2020-10-16] MEDS: DEXAMETHASONE SOD PHOSPHATE 4 MG/ML 1 ML VIAL IV SCH ×4 (06:02→23:29)
[2020-10-16] MEDS: SIMETHICONE 40 MG/0.6 ML DROPS 2,000 MG/30 ML BOTTLE PO SCH ×4 (06:03→23:30)
[2020-10-16] MEDS: LACTATED RINGERS 1,000 ML IV SCH (06:04)
[2020-10-16] MEDS: ENOXAPARIN 40 MG/0.4 ML SYRINGE SQ SCH (08:49)
[2020-10-16] MEDS: PANTOPRAZOLE 40 MG/10 ML VIAL IV SCH (08:49)
[2020-10-16] MEDS: ALBUTEROL NEBULIZED 2.5 MG/3 ML INHALATION SCH ×4 (09:06→21:16)
[2020-10-16] MEDS: 1: MVI, ADULT NO.4 WITH VIT K 10 ML, THIAMINE 100 MG, FOLIC ACID 1 MG, POTASSIUM CHLORID IV SCH ×12 (10:09→20:19)
[2020-10-16 11:10] LABS: Basophils # (A) 0.01 X 10*3/uL (0.00-0.10); Basophils % (A) 0.1 %; Eosinophils # (A) 0 X 10*3/uL (0.04-0.35); Eosinophils % (A) 0 %; HCT 41.2 % (37.2-46.3); HGB 13.5 g/dL (12.0-15.0); Lymphocytes % (A) 7.4 %; MCH 28.5 pg (27.0-32.0); MCHC 32.8 g/dL (32.0-37.0); MCV 86.9 fL (80.0-97.0); Mean Platelet Volume 12.5 fL (9.5-12.2); Monocytes # (A) 0.34 X 10*3/uL (0.20-1.00); Monocytes % (A) 3.6 %; Neutrophils # (A) 8.36 X 10*3/uL (1.80-7.70); Neutrophils % (A) 88.4 %; Platelet Count 238 X 10*3/uL (140-440); RBC 4.74 X 10*6/uL (4.10-5.20); RDW 12.8 % (11.5-14.5); WBC 9.46 X 10*3/uL (4.50-10.00)
[2020-10-16] MEDS: lisinopriL 10 MG TAB PO SCH (13:00)
[2020-10-16 14:01] LABS: African American GFR (CKD) 114.7 (60.0-200.0); Anion Gap 8.9 mmol/L (4.00-12.00); Calcium 8.9 mg/dL (8.7-10.3); Carbon Dioxide 23.1 mmol/L (21.6-31.8); Magnesium 2.3 mg/dL (1.5-2.4); Non-African American GFR(CKD) 98.9 (60.0-200.0); Phosphorus 2.9 mg/dL (2.4-5.1); Potassium 4.6 mmol/L (3.5-5.5)
[2020-10-16] MEDS ORDERED: SODIUM CHLORIDE 0.9% 2,000 ML IV ONE (14:15)
--- NOTE | 2020-10-16 14:18 | P.PN ---
Subjective Progress Note Date: 10/16/20 CHIEF COMPLAINT: Morbid obesity HISTORY OF PRESENT ILLNESS: Patient is status post robotic-assisted laparoscopic sleeve gastrectomy. Patient had upper GI x-ray completed. It had shown mild obstruction. No leak. Minimal free air. Patient started on a bariatric clear liquid diet. Patient reports that her pain is controlled. She denies any vomiting. She did have some nausea earlier today. Afebrile. WBC 9.46 hemoglobin 13.5 sodium 138 potassium 4.6 creatinine 0.8 and magnesium 2.3 PHYSICAL EXAM: VITAL SIGNS: Reviewed GENERAL: Well-developed in no acute distress. HEENT: No sclera icterus. Extraocular movements grossly intact. Moist buccal mucosa. Head is atraumatic, normocephalic. Hears conversational speech. No nasal drainage. NECK: Supple without lymphadenopathy. CHEST: Non-labored respirations and equal bilateral excursions. CARDIOVASCULAR: Palpable 2+ radial pulses. ABDOMEN: Soft. Nondistended. MUSCULOSKELETAL: No clubbing or cyanosis. NEUROLOGIC: No focal or lateralizing signs. Cranial nerves II through XII grossly intact. PSYCH: Appropriate affect. Alert and oriented to person, place and time. SKIN: Well perfused. Good skin turgor. ASSESSMENT: 1. Morbid obesity due to excess calories 2. Body mass index of 66.4, initial 3. Osteoarthritis of the knees. 4. Osteoarthritis of the hips 5. Osteoarthritis of the lower back. 6. Gastroesophageal reflux disease 7. Crohns disease 8. Elevated liver enzymes 9. Hypertriglyceridemia 10. Vitamin D deficiency 11. Secondary hyperparathyroidism 12. Hypertensive heart disease 13. Generalized anxiety disorder PLAN: -Start bariatric clear liquid diet -Give 2 L fluid bolus -Encourage patient to ambulate -Encourage patient to use incentive spirometer -Anticipate discharge possibly tomorrow -GI prophylaxis Protonix and DVT prophylaxis Lovenox Physician Personal Secretary note has been reviewed by physician. Signing provider agrees with the documented findings, assessment, and plan of care. Objective - Vital Signs Vital signs: Vital Signs Temp 98.6 F 10/16/20 07:58 Pulse 92 10/16/20 07:58 Resp 16 10/16/20 07:58 BP 145/88 10/16/20 13:03 Pulse Ox 97 10/16/20 07:58 Intake & Output 10/15/20 10/16/20 10/16/20 18:59 06:59 18:59 Intake Total 1400 1200 Output Total 5 1850 420 Balance 1395 -650 -420 Weight 142.7 kg Intake: IV 1400 Intake, IV Titration 1200 Amount 0.9% NaCl with KCl 20 Meq 1200 /l 1,000 ml @ 150 mls/hr IV .[id number] [facility] Rx#: [id number] Output: Urine 1850 420 Estimated Blood Loss 5 Other: Voiding Method Toilet Toilet # Voids 1 - Labs CBC & Chem 7: 10/16/20 06:56 10/16/20 06:56 Labs: Abnormal Lab Results - Last 24 Hours (Table) 10/16/20 Range/Units 06:56 MPV 12.5 H (9.5-12.2) fL Immature Gran # 0.05 H (0.00-0.04) X 10*3/uL Neutrophils # 8.36 H (1.80-7.70) X 10*3/uL Lymphocytes # 0.70 L (0.90-5.00) X 10*3/uL Eosinophils # 0 L (0.04-0.35) X 10*3/uL
--- NOTE | 2020-10-16 14:24 | FL ---
EXAMINATION TYPE: FL UGI DATE OF EXAM: 10/16/2020 COMPARISON: NONE HISTORY: Postop bariatric surgery TECHNIQUE: A single contrast UGI study is performed. A total of 20 seconds of fluoroscopic time was utilized during procedure and 5 images obtained. FINDINGS: Contrast was swallowed without difficulty and passed and the esophagus without delay. Esophageal law stalsis and motility appear to be within normal limits. There is mild delay at the level of the GE ju nction. Contrast is seen to pass into the stomach. No diagnostic evidence of extravasation. Subsegmen milagros changes at the lung bases suggestive of atelectasis. IMPRESSION: 1. Mild obstructive change at the level of the GE junction
[2020-10-16 15:34] VITALS: BMI 57.5
[2020-10-17] MEDS: LACTATED RINGERS 1,000 ML IV SCH (05:16)
[2020-10-17] MEDS: 1: MVI, ADULT NO.4 WITH VIT K 10 ML, THIAMINE 100 MG, FOLIC ACID 1 MG, POTASSIUM CHLORID IV SCH ×12 (05:22→14:16)
[2020-10-17] MEDS: ONDANSETRON 4 MG/2 ML VIAL IVP SCH ×3 (05:23→17:15)
[2020-10-17] MEDS: DEXAMETHASONE SOD PHOSPHATE 4 MG/ML 1 ML VIAL IV SCH ×3 (05:23→17:16)
[2020-10-17] MEDS: HYOSCYAMINE ORAL DROPS 1.875 MG/15 ML BOTTLE PO SCH ×3 (05:24→17:16)
[2020-10-17] MEDS: HYDROmorphone 1 MG/ML 1 ML SYRINGE IVP PRN (05:24)
[2020-10-17] MEDS: SIMETHICONE 40 MG/0.6 ML DROPS 2,000 MG/30 ML BOTTLE PO SCH ×3 (05:24→17:16)
[2020-10-17] MEDS: ENOXAPARIN 40 MG/0.4 ML SYRINGE SQ SCH (07:54)
[2020-10-17] MEDS: PANTOPRAZOLE 40 MG/10 ML VIAL IV SCH (07:54)
[2020-10-17] MEDS: lisinopriL 10 MG TAB PO SCH (07:54)
[2020-10-17] MEDS: ALBUTEROL NEBULIZED 2.5 MG/3 ML INHALATION SCH ×3 (09:04→17:10)
[2020-10-17] MEDS: ACETAMINOPHEN ORAL SUSP (PEDS) 3,840 MG/120 ML BOTTLE PO PRN ×2 (11:47→17:17)
[2020-10-17 12:26] LABS: Basophils % (A) 0 %; Eosinophils # (A) 0.1 k/uL (0-0.7); Eosinophils % (A) 1 %; HCT 39.8 % (34.0-46.0); HGB 13.3 gm/dL (11.4-16.0); Lymphocytes # (A) 0.9 k/uL (1.0-4.8); Lymphocytes % (A) 8 %; MCH 29.5 pg (25.0-35.0); MCHC 33.3 g/dL (31.0-37.0); MCV 88.5 fL (80.0-100.0); Mean Platelet Volume 10.8; Monocytes # (A) 0.4 k/uL (0-1.0); Monocytes % (A) 4 %; Neutrophils # (A) 9.5 k/uL (1.3-7.7); Neutrophils % (A) 88 %; Platelet Count 235 k/uL (150-450); RDW 13.4 % (11.5-15.5); WBC 10.9 k/uL (3.8-10.6)
--- NOTE | 2020-10-17 15:29 | P.DS ---
Providers Date of admission: 10/15/20 08:50 Expected date of discharge: 10/17/20 Attending physician: Blanka Silva Primary care physician: Robin Wiseman Hospital Course: Discharge diagnosis 1. Morbid obesity due to excess calories 2. Body mass index of 66.4, initial 3. Osteoarthritis of the knees. 4. Osteoarthritis of the hips 5. Osteoarthritis of the lower back. 6. Gastroesophageal reflux disease 7. Crohns disease 8. Elevated liver enzymes 9. Hypertriglyceridemia 10. Vitamin D deficiency 11. Secondary hyperparathyroidism 12. Hypertensive heart disease 13. Generalized anxiety disorder Hospital course This is a 30-year-old female known history of morbid obesity. She is status a post robotic-assisted laparoscopic sleeve gastrectomy. Patient tolerated surgery well. Her pain is controlled. She is tolerating the bariatric clear liquid diet. She is up and ambulating. She is afebrile. She is stable for discharge. Please refer to chart for any further details. Physician Certified Welding Inspector note has been reviewed by physician. Signing provider agrees with the documented findings, assessment, and plan of care. Patient Condition at Discharge: Stable Plan - Discharge Summary Discharge Rx Participant: Yes New Discharge Prescriptions: New bisacodyL [Dulcolax] 5 mg PO DAILY PRN #10 tablet. PRN Reason: Constipation Simethicone 40 mg/0.6 ml Drops [Mylicon Drops] 40 mg PO PCHS PRN #30 ml PRN Reason: Gas Omeprazole [PriLOSEC] 40 mg PO DAILY #30 capsule. Ondansetron Odt [Zofran Odt] 4 mg PO Q8HR PRN #9 tab PRN Reason: Nausea Acetaminophen Oral Susp [Tylenol] 1,000 mg PO Q6H #400 ml Continue Fluticasone Nasal [place] [Flonase Nasal [place]] 2 spr EA NOSTRIL DAILY PRN PRN Reason: allergies ALPRAZolam [Xanax] 0.5 mg PO DAILY PRN PRN Reason: Anxiety Cyclobenzaprine [Flexeril] 10 mg PO DAILY PRN PRN Reason: Pain Cetirizine HCl [Zyrtec] 10 mg PO DAILY Omeprazole [PriLOSEC] 20 mg PO AC-BRKFST calcium polycarbophiL [Fibercon] 625 mg PO DAILY Discontinued Ergocalciferol [Vitamin D2 (1250 Mcg = 29282 Iu)] 50,000 unit PO WE Dicyclomine HCl 10 mg PO TID PRN PRN Reason: Pain Multivitamins, Thera [Multivitamin (formulary)] 1 tab PO DAILY Cannabidiol (Cbd) [Epidiolex] 1 dose PO DAILY PRN PRN Reason: Anxiety Simethicone [Gas-X] 125 mg PO AC-TID PRN #20 capsule PRN Reason: Pain lisinopriL 30 mg PO QAM Calcium Citrate/Vitamin D3 [Calcium Cit 315-Vit D3 6.25 Mcg (250 Iu)] 1 each PO BID #60 tablet Acetaminophen Tab [Tylenol Tab] 1,000 mg PO Q6HR PRN #30 tablet PRN Reason: Pain Discharge Medication List ALPRAZolam [Xanax] 0.5 mg PO DAILY PRN 06/15/20 [History] Cetirizine HCl [Zyrtec] 10 mg PO DAILY 06/15/20 [History] Fluticasone Nasal [place] [Flonase Nasal [place]] 2 spr EA NOSTRIL DAILY PRN 06/15/20 [History] Omeprazole [PriLOSEC] 20 mg PO AC-BRKFST 08/21/20 [History] calcium polycarbophiL [Fibercon] 625 mg PO DAILY 08/21/20 [History] Cyclobenzaprine [Flexeril] 10 mg PO DAILY PRN 10/10/20 [History] Acetaminophen Oral Susp [Tylenol] 1,000 mg PO Q6H #400 ml 10/17/20 [Rx] Omeprazole [PriLOSEC] 40 mg PO DAILY #30 capsule. 10/17/20 [Rx] Ondansetron Odt [Zofran Odt] 4 mg PO Q8HR PRN #9 tab 10/17/20 [Rx] Simethicone 40 mg/0.6 ml Drops [Mylicon Drops] 40 mg PO PCHS PRN #30 ml 10/17/20 [Rx] bisacodyL [Dulcolax] 5 mg PO DAILY PRN #10 tablet. 10/17/20 [Rx] Follow up [facility]ment(s[facility] [place] [facility] - 10[facility]19[facility]20 9:00 am Activity/Diet/Wound Care/Special Instructions: Wear abdominal binder at all times for comfort. No lifting over 4 pounds in 4 weeks You May shower. No bath tub soaks for two weeks Use Tylenol scheduled for the next 24-48 hours for best pain relief. Use ice along incisions for the today to prevent swelling. No straws or carbonated beverages Cut or crush all pills to the size smaller than a TicTac Hold on taking all vitamins until evaluated by surgeon Discontinue taking the lisinopril Check blood pressure daily at home Discharge Disposition: HOME SELF-CARE
[2020-10-17 16:10] VITALS: BP 118/82; PULSE 60; RESP 16; TEMP 97.7
== END 2020-10-17 18:29 | disposition home or self-care (01) | DRG 620 ==
LOC: 2ORMAIN 08:50 → 4SSUR 16:22
PROVIDERS: ADMIT Surgery Plastic and Reconstructive Surgery; ATTEND Surgery Plastic and Reconstructive Surgery
PROC: 0DJ08ZZ Inspection of Upper Intestinal Tract, Via Natural or Artificial Opening Endoscopic (ICD-10-PCS; 2020-10-15)
PROC: 8E0W4CZ Robotic Assisted Procedure of Trunk Region, Percutaneous Endoscopic Approach (ICD-10-PCS; 2020-10-15)
PROC: 0DB64Z3 Excision of Stomach, Percutaneous Endoscopic Approach, Vertical (ICD-10-PCS; principal; 2020-10-15 10:10)
DX: E66.01 Morbid (severe) obesity due to excess calories (principal); K50.90 Crohn's disease, unspecified, without complications; N25.81 Secondary hyperparathyroidism of renal origin; I11.9 Hypertensive heart disease without heart failure; M17.0 Bilateral primary osteoarthritis of knee; Z68.44 Body mass index [BMI] 60.0-69.9, adult; M16.0 Bilateral primary osteoarthritis of hip; F41.1 Generalized anxiety disorder; K21.9 Gastro-esophageal reflux disease without esophagitis; E55.9 Vitamin D deficiency, unspecified; Z90.49 Acquired absence of other specified parts of digestive tract; E78.1 Pure hyperglyceridemia; K76.0 Fatty (change of) liver, not elsewhere classified; M47.9 Spondylosis, unspecified
CPT/HCPCS: 74240; 80051; 81025; 82310; 82565; 83735; 84100; 84520; 85025; 86850; 86900; 86901; 88307; 94640; 94760

== ENCOUNTER → 2020-11-14 | Outpatient (CLI) | payer OTHER ==
[2020-11-14 13:50] VITALS: BP 143/84; PULSE 88; RESP 18; TEMP 98.4; BMI 52.0
--- NOTE | 2020-11-14 14:12 | P.PN ---
Subjective Progress Note Date: 11/14/20 She reports doing well. No gastroesophageal reflux disease. She has weight loss and now has plateau. Use the scale as a tool. Recommend probiotics. Recommend labs. Food diary journal. Do not start blood pressure medications. Occasional pain at incisions. Excellent weight loss. Objective - Vital Signs Vital signs: Vital Signs Temp 98.4 F 11/14/20 13:39 Pulse 88 11/14/20 13:39 Resp 18 11/14/20 13:39 BP 143/84 11/14/20 13:39 Pulse Ox Intake & Output 11/13/20 11/14/20 11/14/20 18:59 06:59 18:59 Weight 133.356 kg
--- NOTE | 2020-11-14 14:14 | P.PN ---
Progress Note - Text Progress Note Date: 11/14/20 To whom it may concern: Yokasta Stephenson is under my surgical care. She may return to work without restrictions on Thursday, November 26. Regards, Blanka Silva MD, FACS
[2020-11-14 15:27] LABS: HGB 14.4 gm/dL (11.4-16.0); MCHC 33.5 g/dL (31.0-37.0); MCV 86.7 fL (80.0-100.0); Mean Platelet Volume 9.3; Platelet Count 263 k/uL (150-450); RBC 4.96 m/uL (3.80-5.40); RDW 14.3 % (11.5-15.5); WBC 6.7 k/uL (3.8-10.6)
[2020-11-14 15:49] LABS: INR 1.1 (<1.2); Prothrombin Time 11.2 sec (9.0-12.0)
[2020-11-14 22:26] LABS: Hemoglobin A1C 4.5 % (4.0-6.0)
[2020-11-15 03:00] LABS: African American GFR (CKD) 99.4 (60.0-200.0); Albumin 4.2 g/dL (3.80-4.90); Albumin/Globulin Ratio 1.68 (1.60-3.17); Anion Gap 14.4 mmol/L (4.00-12.00); BUN/Creat Ratio 15.56 Ratio (12.00-20.00); Carbon Dioxide 21.6 mmol/L (21.6-31.8); Chol/HDL Ratio 4.48; Folate, Serum 15.8 ng/mL; Globulin 2.5 g/dL (1.6-3.3); LDL Cholesterol,Calculated 77.2 mg/dL (0.0-131.0); Magnesium 1.7 mg/dL (1.5-2.4); Non-African American GFR(CKD) 85.8 (60.0-200.0); Phosphorus 3.3 mg/dL (2.4-5.1); Potassium 3.9 mmol/L (3.5-5.5); Total Bilirubin 0.5 mg/dL (0.3-1.2); Total Protein 6.7 g/dL (6.2-8.2); VLDL Calculation 23.8 mg/dL (5.00-40.00)
[2020-11-15 03:01] LABS: % Iron Saturation 10.49 (12.00-45.00)
[2020-11-15 10:31] LABS: Zinc, Serum 83 ug/dL (60-130)
[2020-11-16 06:09] LABS: Vitamin A 34 ug/dL (38-106)
[2020-11-16 13:06] LABS: Vit B1(Thiamine) 57 ug/L (38-122)
== END ==
LOC: BARWHC3 13:23
PROVIDERS: ATTEND Surgery Plastic and Reconstructive Surgery
DX: E66.01 Morbid (severe) obesity due to excess calories (principal); E89.1 Postprocedural hypoinsulinemia; D50.8 Other iron deficiency anemias; E44.0 Moderate protein-calorie malnutrition; E55.9 Vitamin D deficiency, unspecified; K74.1 Hepatic sclerosis; N19 Unspecified kidney failure; K50.90 Crohn's disease, unspecified, without complications; Z71.3 Dietary counseling and surveillance; Z91.018 Allergy to other foods; Z88.6 Allergy status to analgesic agent; Z88.8 Allergy status to other drugs, medicaments and biological substances; Z88.0 Allergy status to penicillin; Z68.43 Body mass index [BMI] 50.0-59.9, adult
CPT/HCPCS: 84255; 84134; 84425; 80061; 80053; 82607; 82728; 82525; 82746; 83540; 83550; 83735; 84100; 84443; 84590; 84630; 85027; 85610; 85730; 82306; 83970; 83036; 97803; 36415; G0463; 99211

== ENCOUNTER → 2021-04-17 | Outpatient (CLI) | payer OTHER ==
--- NOTE | 2021-04-17 15:39 | P.BASOAP ---
Subjective Progress Note Date: 04/17/21 DATE OF SERVICE: 04/17/2021 CHIEF COMPLAINT: Status post sleeve gastrectomy HISTORY OF PRESENT ILLNESS: Yokasta Stephenson is a 30-year-old female status post sleeve gastrectomy, 10/15/2020. She is over 8 months out. She has lost 130+ pounds. She is doing very well. She continues to lose weight. She denies abdominal pain. She comes in with new occasional gastroesophageal reflux disease once to twice per week. At height of 5 feet 3 inches, her ideal body weight is 140 pounds. Her highest 374 pounds with body mass index 66.4. She comes in 243 pounds from 266 pounds, 3 months ago. She has lost 23 pounds in 3 months. She is 103 pounds overweight. Lifetime weight loss of 131 pounds. Lifetime percent excess weight loss of 56%. PAST MEDICAL HISTORY: 1. Morbid obesity due to excess calories 2. Body mass index of 66.4, initial 3. Osteoarthritis of the knees. 4. Osteoarthritis of the hips 5. Osteoarthritis of the lower back. 6. Gastroesophageal reflux disease 7. Crohns disease 8. Hypertensive heart disease 9. Generalized anxiety disorder PAST SURGICAL HISTORY: 1. section x 3 2. Upper endoscopy 3. Status post cholecystectomy 4. Status post sleeve gastrectomy HOME MEDICATIONS: Home Medications Medication Instructions Recorded Confirmed ALPRAZolam [Xanax] 0.5 mg PO DAILY PRN 06/15/20 04/17/21 Cetirizine HCl [Zyrtec] 10 mg PO DAILY 06/15/20 04/17/21 Cyclobenzaprine [Flexeril] 10 mg PO DAILY PRN 10/10/20 04/17/21 Calcium Citrate 500 mg PO DAILY 01/23/21 04/17/21 Ergocalciferol [Vitamin D2 (1250 1,250 mcg PO WEEKLY 01/23/21 04/17/21 Mcg = [id number] Iu)] Multivitamin with Iron 1 each PO DAILY 01/23/21 04/17/21 [Multivitamins with Iron] Vitamin C/Biotin [Hair, Skin and 1 tab PO DAILY 04/17/21 04/17/21 Nails Chew] Previous Rx's Medication Instructions Recorded Acetaminophen Oral Susp [Tylenol] 1,000 mg PO Q6H #400 ml 10/17/20 bisacodyL [Dulcolax] 5 mg PO DAILY PRN #10 tablet. 10/17/20 Omeprazole [PriLOSEC] 40 mg PO DAILY #90 cap 04/17/21 ALLERGIES: Allergies Allergy/AdvReac Type Severity Reaction Status Date / Time adhesive Allergy Rash/Hives Verified 04/17/21 15:43 aspirin Allergy Rash/Hives Verified 04/17/21 15:43 hydrochlorothiazide Allergy Nausea & Verified 04/17/21 15:43 Vomiting ibuprofen [From Motrin] Allergy Rash/Hives Verified 04/17/21 15:43 Penicillins Allergy Rash/Hives Verified 04/17/21 15:43 SOCIAL HISTORY: Denies past tobacco use. FAMILY HISTORY: No family history of ulcerative colitis disease or Crohn's disease. Family history of morbid obesity. No lupus in the family. No reports of stomach or esophageal cancer. Aunt had blood clot. Family history of gallbladder disease. REVIEW OF ORGAN SYSTEMS: CONSTITUTIONAL: At height of 5 feet 3 inches, her ideal body weight is 140 pounds. She comes in 374 pounds. Her body mass index is 66.4. She is 234 pounds overweight. HEENT: Denies any active troubles with vision or hearing. ENDOCRINE: Denies diabetes. No hypothyroidism. CARDIOVASCULAR: Denies past reports of palpitations or heart attacks or chest pain. Has hypertensive heart disease. RESPIRATORY: Has daytime somnolence. Denies asthma. GASTROINTESTINAL: Denies any bright red blood per rectum. Has Crohn's disease MUSCULOSKELETAL: Has lower back pain and joint pain. Has osteoarthritis of the knees. History of bilateral lower extremity edema. NEURO: No headaches. No seizure disorders. PSYCH: Denies depression. No suicidal ideation. RHEUMATOLOGIC: No lupus. No rheumatoid arthritis. HEMATOLOGIC: Has abnormal bleeding or bruising. No personal history of DVTs. SKIN: No rash. No skin cancer. PHYSICAL EXAM: VITAL SIGNS: Height 5 foot 3 inches, weight 243 pounds. BMI 43.2 Vital Signs Temp 99 F 04/17/21 15:41 Pulse 99 04/17/21 15:41 Resp 18 04/17/21 15:41 BP 144/96 04/17/21 15:41 Pulse Ox GENERAL: Well-developed in no acute distress. HEENT: No scleral icterus. Extraocular movements grossly intact. Hears conversational speech. No nasal drainage. NECK: Supple without lymphadenopathy. CHEST: Nonlabored respirations with equal bilateral excursions. CARDIOVASCULAR: Regular rate and rhythm. Distal 2+ pulses. ABDOMEN: Nontender. Nondistended. Protuberant. MUSCULOSKELETAL: No clubbing, cyanosis. NEURO: No focal or lateralizing signs. Cranial nerves 2 through 12 grossly within normal limits. PSYCH: Appropriate affect. Alert and oriented to person, place and time. SKIN: Good skin turgor. LABS: Reviewed. Iron low. Vitamin A low. ASSESSMENT: 1. Morbid obesity due to excess calories 2. Body mass index of 66.4, initial to 43.2 3. Osteoarthritis of the knees. 4. Osteoarthritis of the hips 5. Osteoarthritis of the lower back. 6. Gastroesophageal reflux disease 7. Crohns disease 8. Elevated liver enzymes 9. Hypertriglyceridemia 10. Iron deficiency anemia 11. Secondary hyperparathyroidism 12. Hypertensive heart disease 13. Generalized anxiety disorder 14. Tachycardia 15. Fatty liver disease 16. Gallstones 17. Right upper quadrant abdominal pain 18. Vitamin A deficiency 19. Status post cholecystectomy 20. Dietary surveillance and counseling. 21. Hypertensive heart disease. 22. Adverse reaction to skin glue 23. Status post sleeve gastrectomy PLAN: 1. She has occasional GERD. Omeprazole prescribed. 2. Recommend iron infusion for iron deficiency anemia. 3. Recommend bariatric labs. Objective - Labs CBC & Chem 7: 04/17/21 16:11 04/17/21 16:11 Assessment/Plan Plan: Date: Initial Weight: 170.097 kg Initial BMI: Current Weight: Current BMI: Type of Surgery: Total Volume in Band: Previous Volume: Volume Removed: Volume Added: Band Size:
[2021-04-17 15:43] VITALS: BP 144/96; PULSE 99; RESP 18; TEMP 99; BMI 43.2
[2021-04-17 23:12] LABS: HCT 41.9 % (37.2-46.3); HGB 13.7 g/dL (12.0-15.0); MCH 28.4 pg (27.0-32.0); MCHC 32.7 g/dL (32.0-37.0); MCV 86.7 fL (80.0-97.0); Mean Platelet Volume 11.9 fL (9.5-12.2); NRBC Per 100 WBC 0 /100 WBCS (0.0-0.0); Platelet Count 268 X 10*3/uL (140-440); RBC 4.83 X 10*6/uL (4.10-5.20); RDW 13.2 % (11.5-14.5); WBC 7.08 X 10*3/uL (4.50-10.00)
[2021-04-17 23:38] LABS: Phosphorus 4.2 mg/dL (2.4-5.1)
[2021-04-17 23:39] LABS: % Iron Saturation 14.06 (12.00-45.00); ALT 15 U/L (8-44); AST 22 U/L (13-35); African American GFR (CKD) 114.6 (60.0-200.0); Albumin 4.4 g/dL (3.8-4.9); Albumin/Globulin Ratio 1.52 (1.60-3.17); Alkaline Phosphatase 52 U/L (41-126); BUN/Creat Ratio 18.84 Ratio (12.00-20.00); Calcium 9.5 mg/dL (8.7-10.3); Carbon Dioxide 21.1 mmol/L (20.0-27.5); Chloride 102 mmol/L (96-109); Ferritin 37.6 ng/mL (10.0-291.0); Globulin 2.9 g/dL (1.6-3.3); Glucose 87 mg/dL (70-110); Iron 50 ug/dL (50-170); Magnesium 2.2 mg/dL (1.5-2.4); Non-African American GFR(CKD) 98.8 (60.0-200.0); Potassium 3.9 mmol/L (3.5-5.5); Sodium 137 mmol/L (135-145); Total Iron Binding Capacity 353 ug/dL (228-460); Total Protein 7.3 g/dL (6.2-8.2)
[2021-04-18 00:45] LABS: Folate, Serum >20.00 ng/mL (4.40-31.00)
[2021-04-18 01:14] LABS: INR 1.06 (0.90-1.11); Partial Thromboplastin Time 33.4 sec (23.5-31.0); Prothrombin Time 11.9 sec (9.9-11.9)
[2021-04-18 04:24] LABS: Chol/HDL Ratio 2.95 Ratio; LDL Cholesterol,Calculated 80.5 mg/dL (0.0-131.0); Prealbumin 21.7 mg/dL (18.0-42.0); VLDL Calculation 15.96 mg/dL (5.00-40.00)
[2021-04-18 12:10] LABS: Zinc, Serum 79 ug/dL (60-130)
[2021-04-19 06:12] LABS: Vit B1(Thiamine) 84 ug/L (38-122)
[2021-04-19 06:43] LABS: Vitamin A 48 ug/dL (38-106)
[2021-04-20 10:44] LABS: Selenium 120 mcg/L (63-160)
== END ==
LOC: BARWHC3 14:27
PROVIDERS: ATTEND Surgery Plastic and Reconstructive Surgery
DX: E66.01 Morbid (severe) obesity due to excess calories (principal); M17.0 Bilateral primary osteoarthritis of knee; Z68.41 Body mass index [BMI] 40.0-44.9, adult; M16.0 Bilateral primary osteoarthritis of hip; M47.9 Spondylosis, unspecified; K21.9 Gastro-esophageal reflux disease without esophagitis; K50.90 Crohn's disease, unspecified, without complications; R94.5 Abnormal results of liver function studies; E78.1 Pure hyperglyceridemia; D50.9 Iron deficiency anemia, unspecified; E21.1 Secondary hyperparathyroidism, not elsewhere classified; I11.9 Hypertensive heart disease without heart failure; F41.1 Generalized anxiety disorder; R00.0 Tachycardia, unspecified; K76.0 Fatty (change of) liver, not elsewhere classified; K80.80 Other cholelithiasis without obstruction; E50.9 Vitamin A deficiency, unspecified; Z90.49 Acquired absence of other specified parts of digestive tract; Z71.3 Dietary counseling and surveillance; Z98.84 Bariatric surgery status; Z91.048 Other nonmedicinal substance allergy status; Z88.6 Allergy status to analgesic agent; Z88.5 Allergy status to narcotic agent; Z88.0 Allergy status to penicillin
CPT/HCPCS: 84255; 84134; 84425; 80061; 80053; 82607; 82728; 82525; 82746; 83540; 83550; 83735; 84100; 84443; 84590; 84630; 85027; 85610; 85730; 82306; 83970; 83036; 36415; G0463; 99211